=== PATIENT | female | born 1980 | race Caucasian/White ===

== ENCOUNTER 2020-09-04 06:54 | Emergency (ER) | payer MEDICAID, SELFPAY ==
--- NOTE | 2020-09-04 | XR_ITS ---
EXAMINATION: XR SHOULDER, RIGHT CLINICAL INFORMATION: Pain COMPARISON: None TECHNIQUE: Two views of the right shoulder. FINDINGS: The bones and soft tissues are normal. No fracture. Glenohumeral and acromioclavicular alignment is anatomic with normal joint space. No abnormal soft tissue calcifications. IMPRESSION: Normal right shoulder.
[2020-09-04 07:21] VITALS: BP 131/79; PULSE 64; RESP 16; TEMP 36.6; O2SAT 99; BMI 31.7
--- NOTE | 2020-09-04 07:39 | ED.EXTPRO ---
HPI - Extremity Problem General Chief complaint: Extremity Problem Stated complaint: SHOULDER PAIN Time Seen by Provider: 09/04/20 07:30 Source: patient Mode of arrival: ambulatory History of Present Illness HPI Narrative: 39-year-old female with no sig PMHx c/o worsening right shoulder pain x3 weeks s/p heavy lifting while moving. Reports pain worsened with movement, and radiates down right arm with associated tingling. Denies decreased range of motion, direct trauma/ falls, fever, numbness MD Complaint: extremity pain Onset (ago): week(s) Pain Consistency: constant Location: right and upper extremity Radiation: distal Exacerbating factors: range of motion Related Data Home Medications Medication Instructions Recorded Confirmed No Known Home Meds 09/04/20 09/04/20 Previous Rx's Medication Instructions Recorded acetaminophen [Tylenol Extra 500 mg PO Q6H PRN #20 tab 09/04/20 Strength] cyclobenzaprine 5 mg PO Q8H PRN 5 Days #14 tab 09/04/20 lidocaine [Lidoderm] 1 patch TOPICAL DAILY PRN #30 ea 09/04/20 MDD remove after 12 hours naproxen 500 mg PO BID PRN 10 Days #20 tab 09/04/20 Allergies Allergy/AdvReac Type Severity Reaction Status Date / Time codeine [CODEINE] Allergy Mild RASH Verified 09/04/20 07:20 Review of Systems Review of Systems: Yes all other systems are reviewed and are negative Constitutional: Constitutional: Reports as per HPI and Reports no additional constitutional complaints Cardiovascular: Cardiovascular: Reports as per HPI and Reports no additional cardiovascular complaints Respiratory: Respiratory: Reports as per HPI and Reports no additional respiratory complaints Musculoskeletal: Musculoskeletal: Reports as per HPI, Denies muscle weakness, Reports neck pain (R sided neck), Denies numbness, Reports stiffness and Reports tingling Neurologic: Denies numbness and Reports tingling PMFSH Past Medical History Attestation statement: The following information was validated with the patient. Medical History No known health problems Surgical History H/O abdominoplasty H/O tubal ligation Social History Social History Smoking Status: Never smoker Use of substances other than those prescribed or required for medical reasons: No Advance Directives: No Advance Directives Information Provided: Yes Physical Exam Vital Signs and I&O and Narrative: Vital Signs and I&O: Vital Signs Temp 97.9 F 09/04/20 07:21 Pulse 64 09/04/20 07:21 Resp 16 09/04/20 07:21 BP 131/79 09/04/20 07:21 Pulse Ox 99 09/04/20 07:21 Intake & Output 09/03/20 09/04/20 09/04/20 18:59 06:59 18:59 Weight 76.204 kg Body Mass Index 31.7 Const: General: cooperative and healthy appearing Orientation/consciousness: patient oriented x3 HENMT: Head: Yes normal to inspection Neck: Other: + right-sided neck MSK tenderness. No midline spinous tenderness Neck: Yes normal visual inspection and Yes full ROM Resp: Effort & Inspection: normal respiratory effort Cardio: Peripheral pulses: radial pulses present Neuro: General: patient oriented x3 Extrem: Other: right shoulder tender to palpation over AC joint/deltoid. FROM intact but limited due to pain General: Yes normal to inspection Course Course Course Narrative: -- x-ray unremarkable MDM - Extremity (Nontraumatic) MDM Narrative Medical decision making narrative: 39-year-old female with no sig PMHx c/o worsening right shoulder pain x3 weeks s/p heavy lifting while moving. On exam VSS, NAD/well-appearing. Likely MSK versus rotator cuff tears tendon/ ligamental injury. Low concern for fracture/ dislocation Plan: X-ray Discussed with patient likely need MRI for further workup outpatient Discharge Plan Discharge Clinical Impression: Acute pain of right shoulder Patient Disposition: Home, Self-Care Instructions: Arthralgia (ED) Additional Instructions: the x-ray of her shoulder was unremarkable rest, ice and heat arm Flexeril as a muscle relaxer, take at night as it makes you drowsy, do not drive, drink alcohol, or operate machinery while taking an Naproxen as an anti-inflammatory/pain medication, take with food Tylenol in addition will help with pain Lidoderm patches or numbing patches, apply to painful area If symptoms persist and/or worsen, you fever, weakness, numbness return to the ED You need to follow-up with her primary care doctor, you can also follow-up with orthopedics Prescriptions: New cyclobenzaprine 5 mg tablet 5 mg PO Q8H PRN (Reason: pain (scale score 7-10)) 5 Days Qty: 14 RF: 0 naproxen 500 mg tablet 500 mg PO BID PRN (Reason: pain) 10 Days Qty: 20 RF: 0 acetaminophen [Tylenol Extra Strength] 500 mg tablet 500 mg PO Q6H PRN (Reason: pain or fever) Qty: 20 RF: 0 lidocaine [Lidoderm] 5 % adhesive patch,medicated 1 patch topical DAILY MDD remove after 12 hours PRN (Reason: pain) Qty: 30 RF: 0 No Action No Known Home Meds RF: 0 Referrals: Pradip Matt MD [Physician] - 1 week (as needed) Rocío Nance MD [Primary Care Provider] - 5 days Stand Alone Forms: Work/School Release Print Language: Tamazight
[2020-09-04 09:53] VITALS: BP 121/75; PULSE 52; RESP 16; TEMP 36.4; O2SAT 100
== END 2020-09-04 09:56 | disposition home or self-care (01) ==
PROVIDERS: Emergency Provider Emergency Medicine; PCP Family Medicine
DX: M25.511 Pain in right shoulder (principal)
CPT/HCPCS: 73030; 99283; 99284

== ENCOUNTER → 2020-09-26 12:55 | Outpatient (BNVA) | payer MEDICAID, SELFPAY | PROVIDERS: PCP Internal Medicine; Visit Provider Physician Assistant | DX: M75.81 Other shoulder lesions, right shoulder (principal) | CPT/HCPCS: 20610; 99212; J1040 ==

== ENCOUNTER 2020-10-16 06:41 | Emergency (ER) | payer OTHER, MEDICAID, SELFPAY ==
--- NOTE | 2020-10-16 06:57 | ED.LOWEXIN ---
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 [employer] and an oxygen tank fell on her right little toe, 12 hours ago Onset (ago): hour(s) Injury: Right: toes Type of Injury: other (crush) Place: work Severity: moderate Exacerbating factors: weight bearing and movement Context: direct blow Related Data Home Medications Medication Instructions Recorded Confirmed No Known Home Meds 09/04/20 09/04/20 Previous Rx's Medication Instructions Recorded acetaminophen [Tylenol Extra 500 mg PO Q6H PRN #20 tab 09/04/20 Strength] cyclobenzaprine 5 mg PO Q8H PRN 5 Days #14 tab 09/04/20 lidocaine [Lidoderm] 1 patch TOPICAL DAILY PRN #30 ea 09/04/20 MDD remove after 12 hours naproxen 500 mg PO BID PRN 10 Days #20 tab 09/04/20 naproxen [Naprosyn] 500 mg PO BID #20 tab 10/16/20 Allergies Allergy/AdvReac Type Severity Reaction Status Date / Time codeine [CODEINE] Allergy Mild RASH Verified 09/26/20 13:01 Review of Systems Constitutional: Constitutional: Reports no additional constitutional complaints Eyes: Eyes: Reports no additional eye complaints ENT: Denies dizziness Cardiovascular: Cardiovascular: Reports no additional cardiovascular complaints Respiratory: Respiratory: Reports as per HPI Gastrointestinal: Gastrointestinal: Reports no additional gastrointestinal complaints Genitourinary: Genitourinary: Reports no additional female genitourinary complaints Musculoskeletal: Musculoskeletal: Reports no additional musculoskeletal complaints Integumentary/Breasts: Skin/Breast: Denies rash Neurologic: Reports system reviewed and no additional complaints, except as documented, Denies dizziness and Denies Sensory deficit (Neuro) Psychiatric: Psychiatric: Denies anxiety PMFSH Past Medical History Medical History No known health problems Surgical History H/O abdominoplasty H/O tubal ligation Social History Social History Alcohol intake: current Alcohol intake frequency: holidays/special occasions only Alcohol type: wine Smoking Status: Never smoker Use of substances other than those prescribed or required for medical reasons: No Advance Directives: No Advance Directives Information Provided: Yes service: No 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 Physical Exam Vital Signs: Vital Signs: Last Vital Signs Temp 97.7 F 10/16/20 07:03 Pulse 58 10/16/20 07:03 Resp 18 10/16/20 07:03 BP 120/63 10/16/20 07:03 Pulse Ox 98 10/16/20 07:03 Body Mass Index 31.6 Const: General: healthy appearing Nutritional Appearance: average body habitus Orientation/consciousness: oriented to person and patient oriented x3 Limitations: no limitations HENMT: Head: Yes normal to inspection Ears: external ears normal General nose exam: Normal external nose present Mouth: Normal oral and palatal mucosa present and oropharynx normal Throat: Yes posterior oropharynx normal Eyes: General: appearance normal, both eyes and all related structures Neck: Other: supple Neck: Yes normal visual inspection Chest: Chest palpation & inspection: normal inspection of the chest Resp: Auscultation: clear to auscultation bilaterally Cardio: Jugular venous distension: no JVD Rate: regular rate Rhythm: regular rhythm Heart sounds: S1 normal heart sound present and S2 normal heart sound present GI: Inspection: Yes normal to inspection Palpation (GI): Soft to palpation, nontender and No hepatosplenomegaly present Auscultation: normal bowel sounds : General: Yes no CVA tenderness Back/Spine/Pelvis: Back: no CVA tenderness Skin: General skin exam: no rashes or lesions noted Neuro: General: oriented to person and patient oriented x3 Cranial nerves: Yes CN's II-XII intact bilaterally Motor exam (neuro): 5/5 motor strength present throughout Sensory Exam: No Sensory deficit (Neuro) Extrem: Other: 5th digit with ecchymosis and swelling Psych: Appearance: grossly normal Course Course Course Narrative: patient with distal phalynx transverse fracture Procedures Procedure Narrative Procedure Narrative: Candace tape MDM - Extremity Injury (Lower) MDM Narrative Medical decision making narrative: will candace tape and hard shoe Differential Diagnosis Differential diagnosis: Likely fracture of toe Lab Data Labs: Lab Results 10/16/20 Range/Units 07:29 COVID-19 ([facility]) Negative (Negative) COVID-19 Clin Com See Note Imaging Data toe: Radiologist's impression: distal phalynx transverse fracture Discharge Plan Discharge Clinical Impression: Fracture of toe Patient Disposition: Home, Self-Care Instructions: Toe Fracture (ED) Additional Instructions: Elevation, ice 20 minutes on and off, tylenol and motrin alternating for pain Prescriptions: New naproxen [Naprosyn] 500 mg tablet 500 mg PO BID Qty: 20 RF: 0 No Action No Known Home Meds RF: 0 cyclobenzaprine 5 mg tablet 5 mg PO Q8H PRN (Reason: pain (scale score 7-10)) 5 Days Qty: 14 RF: 0 naproxen 500 mg tablet 500 mg PO BID PRN (Reason: pain) 10 Days Qty: 20 RF: 0 acetaminophen [Tylenol Extra Strength] 500 mg tablet 500 mg PO Q6H PRN (Reason: pain or fever) Qty: 20 RF: 0 lidocaine [Lidoderm] 5 % adhesive patch,medicated 1 patch topical DAILY MDD remove after 12 hours PRN (Reason: pain) Qty: 30 RF: 0 Referrals: Pradip Matt MD [Physician] - 2 days
[2020-10-16 07:03] VITALS: BP 120/63; PULSE 58; RESP 18; TEMP 36.5; O2SAT 98; BMI 31.6
--- NOTE | 2020-10-16 07:03 | XR_ITS ---
EXAMINATION: XR TOES, RIGHT CLINICAL INFORMATION: Crush injury COMPARISON: None TECHNIQUE: 3 views of the right toes were obtained. FINDINGS: There is a nondisplaced fracture of the fifth digit distal phalanx. No intra-articular extension. Joint spaces are maintained. The soft tissues are mildly swollen. XR/XR toe RT min 2V IMPRESSION: Nondisplaced fracture of the fifth digit distal phalanx.
[2020-10-16] MEDS: Ketorolac Tromethamine 60 MG/2 ML VIAL IM (07:19)
--- NOTE | 2020-10-16 07:40 | PC.NURSE ---
pt with crush inj to 5th toe on right foot. noted swelling and bruising, inj happened around 7pm she worked thorough the night and toe became progressively worse.
[2020-10-16 08:00] VITALS: BP 118/68; PULSE 58; RESP 18; TEMP 36.5; O2SAT 98
[2020-10-16 08:00] LABS: COVID-19 Test Negative (Negative); IDNOW Serial# 9DD0AD1C
== END 2020-10-16 08:56 | disposition home or self-care (01) ==
PROVIDERS: Emergency Provider Emergency Medicine; PCP Family Medicine
DX: S92.501A Displaced unspecified fracture of right lesser toe(s), initial encounter for closed fracture (principal); M79.674 Pain in right toe(s); Y29.XXXA Contact with blunt object, undetermined intent, initial encounter; Y93.9 Activity, unspecified; Y92.9 Unspecified place or not applicable; Y99.0 Civilian activity done for income or pay; Z20.828 Contact with and (suspected) exposure to other viral communicable diseases; Z79.899 Other long term (current) drug therapy
CPT/HCPCS: 73660; 87635; 96372; 99203; 99284; J1885

== ENCOUNTER 2020-10-22 14:49 | Outpatient (REF) | payer OTHER, MEDICAID, SELFPAY ==
--- NOTE | 2020-10-22 15:15 | MR_ITS ---
EXAMINATION: MR SHOULDER WITHOUT CONTRAST, RIGHT CLINICAL INFORMATION: Radiculopathy, cervical region. Pain in right arm. Patient reports pain when lifting, sharp, throbbing, and neck pain, symptoms for 2 months. COMPARISON: XR right shoulder 09/04/2020. TECHNIQUE: MRI of the shoulder without contrast was performed on a high-field scanner. FINDINGS: ROTATOR CUFF: There is moderate swelling and patchy signal abnormality of the distal supraspinatus tendon, consistent with moderate tendinosis. There may be some focal areas of fraying of the bursal surface. There is no definite discrete measurable tear. The infraspinatus, teres minor, and subscapularis tendons are intact. There is trace edema/fluid in the subacromial-subdeltoid bursa. No muscle atrophy or fatty infiltration. BICEPS: Normal. CORACOACROMIAL ARCH: The undersurface of the acromion is minimally curved with no subacromial spur. The acromioclavicular joint is normal. LABRUM/CAPSULE: Normal. GLENOHUMERAL JOINT/MARROW: Normal. MR/MR shoulder RT wo con IMPRESSION: 1. Moderate distal supraspinatus tendinosis. No discrete measurable tear. 2. Minor subacromial-subdeltoid bursitis.
== END 2020-10-22 14:50 | disposition home or self-care (01) ==
LOC: HO.MRI 14:49
PROVIDERS: Visit Provider Nurse Practitioner Primary Care
DX: M54.12 Radiculopathy, cervical region (principal); M79.601 Pain in right arm; S92.911A Unspecified fracture of right toe(s), initial encounter for closed fracture
CPT/HCPCS: 73221; 99212

== ENCOUNTER → 2020-10-29 12:41 | Outpatient (BNVA) | payer OTHER, SELFPAY | PROVIDERS: PCP Family Medicine; Visit Provider Physician Assistant | DX: Z13.89 Encounter for screening for other disorder (principal) | CPT/HCPCS: 99213 ==

== ENCOUNTER → 2020-11-19 13:31 | Outpatient (BNVA) | payer OTHER, SELFPAY | PROVIDERS: PCP Family Medicine; Visit Provider Physician Assistant | DX: Z13.89 Encounter for screening for other disorder (principal) | CPT/HCPCS: 99213 ==

== ENCOUNTER → 2020-12-14 08:57 | Outpatient (BNVA) | payer OTHER, SELFPAY | PROVIDERS: PCP Family Medicine; Visit Provider Physician Assistant | DX: S92.919D Unspecified fracture of unspecified toe(s), subsequent encounter for fracture with routine healing (principal) | CPT/HCPCS: 99212 ==

== ENCOUNTER → 2020-12-17 14:02 | Outpatient (BNVA) | payer OTHER, SELFPAY | PROVIDERS: PCP Family Medicine; Visit Provider Physician Assistant Medical | DX: Z13.89 Encounter for screening for other disorder (principal) | CPT/HCPCS: 99213 ==

== ENCOUNTER → 2021-01-01 13:45 | Outpatient (BNVA) | payer OTHER, SELFPAY | PROVIDERS: PCP Family Medicine; Visit Provider Internal Medicine | DX: Z13.89 Encounter for screening for other disorder (principal) | CPT/HCPCS: 99213 ==

== ENCOUNTER → 2021-01-15 13:58 | Outpatient (BNVA) | payer OTHER, SELFPAY | PROVIDERS: PCP Family Medicine; Visit Provider Physician Assistant | DX: Z13.89 Encounter for screening for other disorder (principal) | CPT/HCPCS: 99213 ==

== ENCOUNTER 2021-01-24 22:15 | Outpatient (REF) | payer OTHER, SELFPAY ==
[2021-01-24 22:45] LABS: COVID-19 Test Negative (Negative); IDNOW Serial# 9DD0AD1C
== END 2021-01-24 22:16 | disposition home or self-care (01) ==
LOC: HO.LAB 22:15
PROVIDERS: PCP Internal Medicine; Visit Provider Internal Medicine
DX: Z20.822 Contact with and (suspected) exposure to COVID-19 (principal)
CPT/HCPCS: 36415; 87635

== ENCOUNTER 2021-01-28 10:29 | Outpatient (REF) | payer OTHER, SELFPAY ==
[2021-01-28 10:53] LABS: COVID-19 Test Negative (Negative); IDNOW Serial# 55D5AD1C
== END 2021-01-28 10:30 | disposition home or self-care (01) ==
LOC: HO.EMPCOV 10:29
PROVIDERS: Visit Provider Internal Medicine
DX: Z20.822 Contact with and (suspected) exposure to COVID-19 (principal)
CPT/HCPCS: 36415; 87635; C9803

== ENCOUNTER 2021-03-21 13:39 | Outpatient (REF) | payer OTHER, SELFPAY ==
[2021-03-21 14:24] LABS: COVID-19 Test Negative (Negative); IDNOW Serial# 55D5AD1C
== END 2021-03-21 13:40 | disposition home or self-care (01) ==
LOC: HO.EMPCOV 13:39
PROVIDERS: Visit Provider Internal Medicine
DX: Z20.822 Contact with and (suspected) exposure to COVID-19 (principal)
CPT/HCPCS: 36415; 87635; C9803

== ENCOUNTER 2021-06-28 10:28 | Outpatient (REF) | payer MEDICAID, SELFPAY ==
[2021-06-28 12:39] LABS: COVID-19 Test Negative (Negative); IDNOW Serial# 9DD0AD1C
== END 2021-06-28 12:12 | disposition home or self-care (01) ==
LOC: HO.LAB 12:11
PROVIDERS: PCP Family Medicine; Visit Provider Internal Medicine
DX: Z20.822 Contact with and (suspected) exposure to COVID-19 (principal)
CPT/HCPCS: 36415; 87635

== ENCOUNTER → 2022-01-28 14:32 | Outpatient (BNVA) | payer MEDICAID, SELFPAY | PROVIDERS: PCP Family Medicine; Visit Provider Physician Assistant | DX: M77.11 Lateral epicondylitis, right elbow (principal) | CPT/HCPCS: 20551; 99212; J1020 ==

== ENCOUNTER 2022-01-29 06:03 | Outpatient (REF) | payer MEDICAID, SELFPAY ==
[2022-01-29 06:29] LABS: MANUAL DIFF FLAG NO
[2022-01-29 07:20] LABS: Basophils Percent Auto 0.1 % (0-2); Eosinophils Percent Auto 0.1 % (0-4); Hematocrit 36.8 % (37.0-47.0); Hemoglobin 11.9 g/dl (12.0-16.0); Imm Gran Abs Auto 0.03 X10*3/uL (0.00-0.03); Imm Gran Pct Auto 0.4 % (0.0-0.4); Lymphocytes Percent Auto 14.1 % (20-40); Mean Corpuscular HGB Conc 32.3 g/dl (31.0-35.0); Mean Corpuscular Volume 80.5 fL (80.0-98.0); Mean Platelet Volume 9.7 fL (9.4-12.3); Monocytes Absolute Auto 0.2 X10*3/uL (0.1-1.2); Monocytes Percent Auto 3.4 % (2-11); Neutrophils Absolute Auto 5.5 x10*3/uL (2.0-8.3); Neutrophils Percent Auto 81.9 % (45-73); Platelet Count 345 X10*3/uL (160-400); Red Blood Count 4.57 X10*6/uL (4.20-5.50); Red Cell Distribution Width 13.5 % (11.0-16.0); White Blood Count 6.7 X10*3/uL (4.8-10.8)
[2022-01-29 07:36] LABS: Estimated Average Glucose 105 mg/dL; Hemoglobin A1c % 5.3 %
[2022-01-29 08:06] LABS: Alanine Aminotransferase 18 U/L (0-31); Albumin Level 4.8 g/dL (3.5-5.0); Alkaline Phosphatase 57 U/L (39-117); Anion Gap 14 (12-20); Aspartate Amino Transferase 18 U/L (5-31); Bilirubin Total 0.6 mg/dL (0.0-1.0); Blood Urea Nitrogen 11 mg/dL (9-16); Calcium 9.8 mg/dL (8.4-10.2); Carbon Dioxide 25 mmol/L (22-29); Chloride 102 mmol/L (96-108); Cholesterol 230 mg/dL; Estimated Glomerular Filt Rate > 60; Glucose Random 115 mg/dL (60-115); HDL Cholesterol 47 mg/dL; Iron 77 mcg/dL (30-160); LDL Cholesterol Calculated 167 mg/dl; Potassium 4.4 mmol/L (3.3-5.1); Sodium 137 mmol/L (135-145); Total Protein 8.1 g/dL (6.5-8.0); Triglycerides 80 mg/dL
[2022-01-29 08:13] LABS: TSH reflex Free T4 1.29 uIU/mL (0.32-4.0)
[2022-01-29 08:14] LABS: Percent Iron Saturation 17 % (15-50); Total Iron Binding Capacity 446 mcg/dL (228-428); Unsaturated Iron Binding 369 ug/dL
[2022-01-29 08:15] LABS: Erythrocyte Sedimentation Rate 11 MM/HR (0-20)
[2022-01-29 08:25] LABS: Folate 17.5 ng/mL (> or = 4.0); Vitamin B12 642 pg/mL (200-900)
[2022-01-29 08:39] LABS: Ferritin 20 ng/mL (10-250)
[2022-01-29 13:57] LABS: CT PCR NOT DETECTED (Not Detect.); NG PCR NOT DETECTED (Not Detect.)
[2022-01-31 01:07] LABS: Lyme Abs Screen <0.90 index
[2022-01-31 15:07] LABS: Anti Nuclear Antibody Screen NEGATIVE (NEGATIVE)
[2022-02-02 15:51] LABS: Vitamin D 25-OH, D2 <4 ng/mL; Vitamin D 25-OH, D3 20 ng/mL; Vitamin D 25-OH, Total 20 ng/mL (30-100)
[2022-02-04 16:02] LABS: Vitamin B1 10 nmol/L (8-30)
[2022-02-06 11:16] LABS: T.Pallidum Particle Agg Test Non-Reactive (Nonreactive)
[2022-02-12 10:04] LABS: RPR Quantitative Non-Reactive (Nonreactive)
== END 2022-01-29 06:04 | disposition home or self-care (01) ==
LOC: HO.LAB 06:03
PROVIDERS: PCP Family Medicine; Visit Provider Family Medicine
DX: F33.1 Major depressive disorder, recurrent, moderate (principal); H53.8 Other visual disturbances; M54.12 Radiculopathy, cervical region; R20.0 Anesthesia of skin; R94.6 Abnormal results of thyroid function studies
CPT/HCPCS: 80053; 80061; 82306; 82607; 82728; 82746; 83036; 83540; 83735; 84425; 84443; 85025; 85652; 86038; 86039; 86592; 86617; 86618; 86780; 87491; 87591

== ENCOUNTER 2023-10-21 09:52 | Outpatient (REF) | payer MEDICAID, SELFPAY ==
[2023-10-21 12:05] LABS: MANUAL DIFF FLAG NO
[2023-10-21 12:08] LABS: Basophils Percent Auto 0.4 % (0-2); Eosinophils Absolute Auto 0.1 X10*3/uL (0.0-0.4); Eosinophils Percent Auto 1.6 % (0-4); Hematocrit 39.7 % (37.0-47.0); Hemoglobin 12.9 g/dl (12.0-16.0); Imm Gran Abs Auto 0.01 X10*3/uL (0.00-0.03); Imm Gran Pct Auto 0.2 % (0.0-0.4); Lymphocytes Absolute Auto 1.3 X10*3/uL (1.2-4.9); Lymphocytes Percent Auto 25.4 % (20-40); Mean Corpuscular HGB Conc 32.5 g/dl (31.0-35.0); Mean Corpuscular Hemoglobin 26.7 pg (27.0-33.0); Mean Corpuscular Volume 82.2 fL (80.0-98.0); Mean Platelet Volume 9.6 fL (9.4-12.3); Monocytes Absolute Auto 0.3 X10*3/uL (0.1-1.2); Monocytes Percent Auto 6.7 % (2-11); Neutrophils Absolute Auto 3.3 x10*3/uL (2.0-8.3); Neutrophils Percent Auto 65.7 % (45-73); Platelet Count 321 X10*3/uL (160-400); Red Blood Count 4.83 X10*6/uL (4.20-5.50); Red Cell Distribution Width 14.3 % (11.0-16.0); White Blood Count 5.1 X10*3/uL (4.8-10.8)
[2023-10-21 12:50] LABS: Alanine Aminotransferase 15 U/L (0-31); Albumin Level 4.4 g/dL (3.5-5.0); Alkaline Phosphatase 47 U/L (39-117); Anion Gap 10 (12-20); Aspartate Amino Transferase 17 U/L (5-31); Bilirubin Direct 0.1 mg/dL (0.0-0.5); Bilirubin Total 0.4 mg/dL (0.0-1.0); Blood Urea Nitrogen 14 mg/dL (9-16); Calcium 9.2 mg/dL (8.4-10.2); Carbon Dioxide 27 mmol/L (22-29); Chloride 105 mmol/L (96-108); Cholesterol 194 mg/dL (<200); Estimated Glomerular Filt Rate > 60; Glucose Random 99 mg/dL (60-115); HDL Cholesterol 44 mg/dL (>40); LDL Cholesterol Calculated 121 mg/dL (<100); Potassium 4.1 mmol/L (3.3-5.1); Sodium 138 mmol/L (135-145); TSH reflex Free T4 1.49 uIU/mL (0.32-4.0); Total Protein 7.6 g/dL (6.5-8.0); Triglycerides 149 mg/dL (<150)
[2023-10-21 12:52] LABS: HIV AB/AG Nonreactive (Nonreactive); HIV Num 1 0.05 S/CO (0.00-0.99); ~HepC Num1 0.14 S/CO (0.00-0.79); ~Hepatitis C Antibody Nonreactive (Nonreactive)
[2023-10-23 12:49] LABS: RPR Rapid Plasma Reagin NON-REACTIVE (NON-REACTIVE)
[2023-10-25 00:54] LABS: VITAMIN D (1,25 OH) D3 27 pg/mL; Vit D (1,25-Dihydroxy) Total 27 pg/mL (18-72); Vitamin D (1,25 OH) D2 <8 pg/mL
== END 2023-10-21 09:53 | disposition home or self-care (01) ==
LOC: HO.HHCL 09:52
PROVIDERS: Visit Provider Family Medicine
DX: Z11.4 Encounter for screening for human immunodeficiency virus [HIV] (principal); Z11.3 Encounter for screening for infections with a predominantly sexual mode of transmission; F10.90 Alcohol use, unspecified, uncomplicated; E03.9 Hypothyroidism, unspecified
CPT/HCPCS: 36415; 80048; 80061; 80076; 82652; 83735; 84443; 85025; 86592; 86803; 87389

== ENCOUNTER 2024-12-09 12:38 | Outpatient (REF) | payer MEDICAID, SELFPAY ==
[2024-12-09 16:05] LABS: MANUAL DIFF FLAG NO
[2024-12-09 16:13] LABS: Basophils Percent Auto 0.4 % (0-2); Eosinophils Absolute Auto 0.1 X10*3/uL (0.0-0.4); Eosinophils Percent Auto 1.9 % (0-4); Hematocrit 38.9 % (37.0-47.0); Hemoglobin 12.5 g/dl (12.0-16.0); Imm Gran Abs Auto 0.02 X10*3/uL (0.00-0.03); Imm Gran Pct Auto 0.4 % (0.0-0.4); Lymphocytes Absolute Auto 1.3 X10*3/uL (1.2-4.9); Lymphocytes Percent Auto 25.3 % (20-40); Mean Corpuscular HGB Conc 32.1 g/dl (31.0-35.0); Mean Corpuscular Volume 80.9 fL (80.0-98.0); Monocytes Absolute Auto 0.4 X10*3/uL (0.1-1.2); Monocytes Percent Auto 7.4 % (2-11); Neutrophils Absolute Auto 3.3 x10*3/uL (2.0-8.3); Neutrophils Percent Auto 64.6 % (45-73); Platelet Count 289 X10*3/uL (160-400); Red Blood Count 4.81 X10*6/uL (4.20-5.50); White Blood Count 5.2 X10*3/uL (4.8-10.8)
[2024-12-09 16:36] LABS: Alanine Aminotransferase 20 U/L (0-31); Albumin Level 4.7 g/dL (3.5-5.0); Alkaline Phosphatase 52 U/L (39-117); Anion Gap 9 (12-20); Aspartate Amino Transferase 27 U/L (5-31); Bilirubin Direct 0.1 mg/dL (0.0-0.5); Bilirubin Total 0.3 mg/dL (0.0-1.0); Blood Urea Nitrogen 8 mg/dL (9-16); Calcium 9.3 mg/dL (8.4-10.2); Carbon Dioxide 28 mmol/L (22-29); Chloride 107 mmol/L (96-108); Cholesterol 180 mg/dL (<200); Estimated Glomerular Filt Rate > 60; Glucose Random 94 mg/dL (60-115); HDL Cholesterol 55 mg/dL (>40); LDL Cholesterol Calculated 106 mg/dL (<100); Potassium 4.2 mmol/L (3.3-5.1); Sodium 140 mmol/L (135-145); Total Protein 8.1 g/dL (6.5-8.0); Triglycerides 95 mg/dL (<150)
[2024-12-09 16:52] LABS: TSH reflex Free T4 2.04 uIU/mL (0.32-4.0); Vitamin D 25-OH Total 46.8 ng/mL (>30)
[2024-12-10 08:34] LABS: HIV AB/AG Nonreactive (Nonreactive); HIV Num 1 0.07 S/CO (0.00-0.99); ~Hepatitis C Antibody Nonreactive (Nonreactive)
[2024-12-10 08:35] LABS: Syphilis Screen Nonreactive (Nonreactive)
== END 2024-12-09 12:39 | disposition home or self-care (01) ==
LOC: HO.HHCL 12:38
PROVIDERS: Visit Provider Family Medicine
DX: E66.811 Obesity, class 1 (principal); E66.09 Other obesity due to excess calories; Z68.31 Body mass index [BMI] 31.0-31.9, adult; F33.1 Major depressive disorder, recurrent, moderate; E55.9 Vitamin D deficiency, unspecified
CPT/HCPCS: 36415; 80048; 80061; 80076; 82306; 84443; 85025; 86780; 86803; 87389

== ENCOUNTER 2024-12-09 13:11 | Outpatient (REF) | payer MEDICAID, SELFPAY ==
[2024-12-10 03:54] LABS: CT PCR NOT DETECTED (Not Detect.); NG PCR NOT DETECTED (Not Detect.)
== END 2024-12-09 13:12 | disposition home or self-care (01) ==
LOC: HO.HHCL 13:11
PROVIDERS: Visit Provider Family Medicine
DX: Z11.3 Encounter for screening for infections with a predominantly sexual mode of transmission (principal)
CPT/HCPCS: 81515; 87491; 87591

== ENCOUNTER 2024-12-09 16:15 | Outpatient (REF) | payer MEDICAID, SELFPAY ==
[2024-12-09 18:21] LABS: Bacterial Vaginosis PCR POSITIVE (Negative); Candida Group PCR NOT DETECTED (Not Detect); Candida glab krusei PCR NOT DETECTED (Not Detect); Trichomonas vaginalis PCR NOT DETECTED (Not Detect)
== END 2024-12-09 16:16 | disposition home or self-care (01) ==
LOC: HO.LNP 16:15
PROVIDERS: Visit Provider Family Medicine
DX: Z13.89 Encounter for screening for other disorder (principal)
CPT/HCPCS: 81515

== ENCOUNTER 2025-01-11 09:23 | Outpatient (REF) | payer MEDICAID, SELFPAY ==
--- OUTSIDE RECORDS SUMMARY | 2025-01-11 10:35 | XMS_ITS | Encounter Summary ---
Author Organization [employer] Address [address] [place] [address] Care Team Providers Care Mechanical Equipment Sales Engineer Name Role Phone Rocío Nance MD Primary Care Provider [phone]- [phone] Encounter Details Date Type Department Care Team (Latest Contact Info) Description 01/04/2025 Travel Social History Tobacco Use Types Packs/Day Years Used Date Smoking Tobacco: Former Cigarettes Smokeless Tobacco: Former Alcohol Use Standard Drinks/Week Comments Yes 12 (1 standard drink = 0.6 oz pure alcohol) drinks occacionally due to stress Alcohol Answer Date Recorded How often do you have a drink containing alcohol ? 2 12/09/2024 Average Number of Drinks Not on file 025 Frequency of Binge Drinking Not on file 11/30 Depression Answer Date Recorded Patient Health Questionnaire-9 Score 21 12/09/2024 Patient Health Questionnaire-9 Score 21 12/09/2024 Last PHQ-9: Questionnaire Data Not on file 0 12/09/2024 Housing Stability Answer Date Recorded What is your housing situation today? I have [facility] 12/09/[address] you li ve. Do you have problems with any of the following? None of the above 12/09/2024 Food Insecurity Answer Date Recorded Within the past 12 months, y ou worried that your food would run out before you got money to buy more: Never True 12/09/2024 Within the past 12 months,th e food you bought just didn't last and you didn't have enough money to get more: Never True 08/2025 Transportation Answer Date Recorded In the past 12 months, has l ack of transportation kept you from medical appts, meetings, work or from getting things needed for daily living? No 12/09/2024 Utilities Answer Date Recorded In the past 12 months, has t he electric, gas, oil or water company threatened to shut off services in your home? No 12/09/2024 Depression Answer Date Recorded Patient Health Questionnaire-2 Score 5 12/09/2024 Internet Access Answer Date Recorded Internet Access Q1 Yes 12/09/2024 Internet Access Q2 Not on file 12/09/2024 Comments Unknown Sex and Gender Information Value Date Recorded Sex Assigned at Female 09/29/2022 10:17 AM EDT Legal Sex Female 10:17 AM EDT Gender Identity Female 09/29/2022 10:17 AM EDT Sexual Orientation Choose not to disclose 2021 10:17 AM EDT documented as of this encounter Plan of Treatment Not on file documented as of this encounter Visit Diagnoses Not on filedocumented in this encounter Additional Health Concerns Assessment Noted Time PHQ-9 Depression Total Score: 21 025 12:01 PM EST documented as of this encounter Care Teams Mechanical Equipment Sales Engineer Relationship Specialty Start Date End Date Rocío Nance MD [address] [place] [id number] PCP - General Family Medicine 11/30/18 Luna Reina CNM Gynecology 12/09/24 documented as of this encounter
--- OUTSIDE RECORDS SUMMARY | 2025-01-11 10:36 | XMS_ITS | Clinical Summary ---
Author Organization [facility] Address [address] [place] [address] Care Team Providers Care Assistant Property Manager Name Role Rocío Ayers MD Primary Care Provider [phone]- [phone] Surgical History Surgery Date Site/Laterality Comments BREAST REDUCTION 2014 PROCEDURE: MO BREAST REDUCTION OTHER SURGICAL HISTORY PROCEDURE: MO LIG/TRNSXJ FLP TUBE ABDL/VAG APPR UNI/BI BELT ABDOMINOPLASTY 2018 PROCEDURE: HISTORICAL TUMMY TUCK; COMMENT: in [facility] Medical History Medical History Date Comments Anemia DX:Anemia Anxiety state DX:Anxiety state Family History Medical History Relation Name Comments Breast cancer Aunt mom side Hypertension Father Other cancer Maternal Grandmother Hypertension Mother Breast cancer Paternal Grandmother No Known Problems Sister 1/2 sisiter on dad side Diabetes Uncle Cervical cancer Neg Hx Colon cancer Neg Hx Ovarian cancer Neg Hx Prostate cancer Neg Hx Relation Name Status Comments Aunt mom side Alive Brother 1 bipolar Alive Brother 2 depreesssponm Alive Brother 3 depression Alive Brother 4 Alive Father Alive Maternal Grandmother Mother Alive Paternal Grandmother Sister 1/2 sisiter on dad side Alive Uncle Social History Tobacco Use Types Packs/Day Years Used Date Smoking Tobacco: Light Smoker Cigarettes Smokeless Tobacco: Never Alcohol Use Standard Drinks/Week Comments Yes 0 (1 standard drink = 0.6 oz pur e alcohol) Comments Unknown Sex and Gender Information Value Date Recorded Sex Assigned at Not on file Legal Sex Female 9:06 AM EST Gender Identity Not on file Sexual Orientation Not on file Obstetrics History Last Filed Vital Signs Vital Sign Reading Time Taken Comments Blood Pressure 108/71 10/27/2023 10:13 AM EST Pulse 66 10/27/2023 10:13 AM EST Temperature - - Respiratory Rate - - Oxygen Saturation - - Inhaled Oxygen Concentration - - Weight 81.2 kg (179 lb) 10/27/2023 10:13 AM EST Height 154.9 cm (5' 1 ) 10/27/2023 10:13 AM EST Body Mass Index 33.82 10/27/2023 10:13 AM EST Plan of Treatment Health Maintenance Due Date Last Done Comments Breast Cancer Screening 1980 DTaP,Tdap,and Td Vaccines (1 - Tdap) 1999 Hepatitis B Vaccines (1 of 3 - 19+ 3-dose series) 1999 Pneumococcal Vaccine: Pediat rics (0 to 5 Years) and At-Risk Patients (6 to 64 Years) (1 of 2 - PCV) 1999 Depression Screening 11/02/2022 HIV Screening 11/02/2022 Hepatitis C Screening 11/02/2022 Social Influencers of Health Screening 11/02/2022 Cervical Cancer Screening: P ap Smear 02/15/2024 02/14/2021 COVID-19 Vaccine ( - 2023-2 5 season) 2024 Influenza Vaccine (#1) 2024 HIB Vaccines Aged Out No longer eligi ble based on patient's age to complete this topic HPV Vaccines Aged Out No longer eligi ble based on patient's age to complete this topic Hepatitis A Vaccines Aged Out No long er eligible based on patient's age to complete this topic IPV Vaccines Aged Out No longer eligi ble based on patient's age to complete this topic MMR Vaccines Aged Out No longer eligi ble based on patient's age to complete this topic Meningococcal ACWY Vaccine Aged Out N o longer eligible based on patient's age to complete this topic Meningococcal B Vacine Aged Out No lo nger eligible based on patient's age to complete this topic RSV Immunization Patients Un verito 20 months Aged Out No longer eligible b ased on patient's age to complete this topic Varicella Vaccines Aged Out No longer eligible based on patient's age to complete this topic Procedures Procedure Name Priority Date/Time Associated Diagnosis Comments PAP SMEAR Routine 02/14/2021 from Last 3 Months or Most Recently Relevant to Health Maintenance Results * Pap smear (02/14/2021) 02/14/2021 Narrative HISTORICAL TESTING LAB RESULTING AGENCY - 02/18/2021 1:05 PM EDT [id number] THINPREP PAP, IMAGED: NEGATIVE FOR SQUAMOUS INTRAEPITHELIAL LESION AND MALIGNANCY . CLUE CELLS ARE PRESENT. FARA HIGGINBOTHAM(ASCP) (CASE ELECTRONICALLY SIGNED 02 18 2021) RESULT OF APTIMA HIGH RISK HPV ASSAY: HIGH RISK HPV: ??NEGATIVE (SEROTYPES 16,18,31,33,35,39,45,51,52,56,58,59,66,68) COMPLETED ON 2021-02-18 ADEQUACY: SATISFACTORY ENDOCERVICAL/TRANSFORMATION ZONE COMPONENT PRESENT. SOURCE: THINPREP PAP HPV ANY DX: ??REFLEX 16 AND 18, CERVICAL, IMAGED CLINICAL INFORMATION: HPV ANY DIAGNOSIS. HORMONES, PAP HX NEG 2015, LMP 02/04/21 [Z12.4, Z01.419 Yesenia Ramsay [facility] LAB CYTOLOGY ORDERABLES Final Result HISTORICAL TESTING LAB RESULTING AGENCY from Last 3 Months or Most Recently Relevant to Health Maintenance Care Teams Assistant Property Manager Relationship Specialty Start Date End Date Rocío Nance MD [address] [place] [phone] PCP - General Internal Medicine 02/11/18
--- OUTSIDE RECORDS SUMMARY | 2025-01-11 10:36 | XMS_ITS | Encounter Summary ---
Author Organization [employer] Address [address] [place] [address] Care Team Providers Care Nurse College Name Role Phone Rocío Nance MD Primary Care Provider +1- [phone] Encounter Details Date Type Department Care Team (Late st Contact Info) Description 09/06/2024 Abstract [facility] [address] [place], [place] [phone] Rocío Nance MD [address], [place] [phone] Social History Tobacco Use Types Packs/Day Years Used Date Smoking Tobacco: Some Days Cigarettes Alcohol Use Standard Drinks/Week Comments Yes 12 (1 standard drink = 0.6 oz pure alcohol) drinks occacionally due to stress Depression Answer Date Recorded Patient Health Questionnaire-9 Score 0 09/23/2023 Patient Health Questionnaire-9 Score 0 09/23/2023 Last PHQ-9: Questionnaire Data Not on file 1 Housing Stability Answer Date Recorded What is your housing situation today? I have housing today, but I am worried about losing housing in the future 09/23/[address] you li ve. Do you have problems with any of the following? None of the above 09/23/2023 Food Insecurity Answer Date Recorded Within the past 12 months, y ou worried that your food would run out before you got money to buy more: Never True 09/23/2023 Within the past 12 months,th e food you bought just didn't last and you didn't have enough money to get more: Never True Transportation Answer Date Recorded In the past 12 months, has l ack of transportation kept you from medical appts, meetings, work or from getting things needed for daily living? No 09/23/2023 Utilities Answer Date Recorded In the past 12 months, has t he electric, gas, oil or water company threatened to shut off services in your home? No 09/23/2023 Depression Answer Date Recorded Patient Health Questionnaire-2 Score 0 09/23/2023 Comments Unknown Sex and Gender Information Value Date Recorded Sex Assigned at Female 09/29/2022 10:17 AM EDT Legal Sex Female 10:17 AM EDT Gender Identity Female 09/29/2022 10:17 AM EDT Sexual Orientation Choose not to disclose 2021 10:17 AM EDT documented as of this encounter Plan of Treatment Not on file documented as of this encounter Procedures Procedure Name Priority Date/Time Associated Diagnosis Comments PAP/HPV Routine 02/18/2021 documented in this encounter Results * PAP/HPV (02/18/2021) Pap Smear 1. NILM 1. NILM Comment:With Yesenia Ramsay CNM Historical Provider HEALTH MAINTENANCE Final Result documented in this encounter Visit Diagnoses Not on filedocumented in this encounter Additional Health Concerns Assessment Noted Time PHQ-9 Depression Total Score: 0 09/23/20 23 10:57 AM EDT documented as of this encounter Care Teams Nurse College Relationship Specialty Start Date End Date Rocío Nance MD [address] [place] [address] PCP - General Family Medicine 11/30/18 Luna Reina CNM Gynecology 12/09/24 documented as of this encounter
--- OUTSIDE RECORDS SUMMARY | 2025-01-11 10:36 | XMS_ITS | Encounter Summary ---
Author Organization [employer] Address [address] [facility] [address] [place] [address] Care Team Providers Care Industrial Services Worker Name Role Phone Rocío Nance MD Primary Care Provider [phone]- [phone] Reason for Visit * Reason Onset Date Comments Breast Cancer Screening 12/15/2024 Encounter Details Date Type Department Care Team ([facility] st Contact Info) Description 12/15/2024 Telephone [facility] [address] [place], [place] [id number] Teod[place], [place] Breast Cancer Screening Social History Tobacco Use Types Packs/Day Years [...] AM EDT documented as of this encounter Miscellaneous Notes * Telephone Encounter - Yvonne Valerio [place] - 12/15/2024 1:44 PM EST Patient contacted 12/15/24 1:45 PM to remind them that mammogram for breast cancer screening is due. Advised to call centralized scheduling at [facility]: [phone] documented in this encounter Plan of Treatment Not on file documented as of this encounter Visit Diagnoses Not on filedocumented in this encounter Additional Health Concerns Assessment Noted Time PHQ-9 Depression Total Score: 21 025 12:01 PM EST documented as of this encounter Care Teams Industrial Services Worker Relationship Specialty Start Date End Date Rocío Nance MD [address] [place] [address] PCP - General Family Medicine 11/30/18 Luna Reina CNM Gynecology 12/09/24 documented as of this encounter
--- OUTSIDE RECORDS SUMMARY | 2025-01-11 10:36 | XMS_ITS | Encounter Summary ---
Author Organization [facility] [employer] [facility] Address [address] [place] [address] [address] [place] [address] Care Team Providers Care Oil Fire Specialist Name Role Phone Rocío Nance MD Primary Care Provider +1- [phone] Encounter Details Date Type Department Care Team (Late st Contact Info) Description 01/06/2023 Abstract [facility] [address], [place] [phone] Rocío Nance MD [address] [place], [place] [phone] Social History Tobacco Use Types Packs/Day Years Used Date Smoking Tobacco: Never Assessed Comments Unknown Sex and Gender Information Value [...] Date/Time Associated Diagnosis Comments PAP SMEAR Routine 03/12/2018 12:00 AM EDT documented in this encounter Results * Pap Smear (03/12/2018 12:00 AM EDT) Swab us Historical Provider LAB CYTOLOGY ORDERABLES F inal Result IMAGING documented in this encounter Visit Diagnoses Not on filedocumented in this encounter Care Teams Oil Fire Specialist Relationship Specialty Start Date End Date Rocío Nance MD [address] [place], [place] [phone] PCP - General Family Medicine 11/30/18 Luna Reina CNM Gynecology 12/09/24 documented as of this encounter
--- OUTSIDE RECORDS SUMMARY | 2025-01-11 10:36 | XMS_ITS | Clinical Summary ---
Author Organization [employer] Address [address] [place] [address] [address] [place] [address] Care Team Providers [facility] [place] [facility] Name Role Phone Rocío Nance MD Primary Care Provider [phone] Allergies Active Allergy Reactions Criticality Noted Date Comments Codeine Other reaction(s): rash Medications * This document contains information received from the source organization and may not represent a complete record from that organization. cholecalciferol (Vitamin D-3) 25 MCG (1000 UT) tabletIndication s:Vitamin D Deficiency Take 1 tablet (25 mcg) by mouth Once per day. 90 tablet 3 5 12/09/19 26 Active DULoxetine (Cymbalta) [address] capsuleIndicatio ns:Recurrent major depressive episodes, moderate (CMS/HCC) Take 1 capsule (20 mg) by mouth Once per day. 90 capsule 2 5 Active hydrOXYzine pamoate (Vistaril) 25 MG capsuleIndicatio ns:Anxiety Take 1 capsule (25 mg) by mouth if needed each day for itching (panic attack) for up to 20 days. 10 capsule 1 5 Active meloxicam (Mobic) 15 MG tabletIndication s:Midline low back pain, unspecified chronicity, unspecified whether sciatica present Take 1 tablet (15 mg) by mouth Once per day. 20 tablet 1 5 Active metroNIDAZOLE (Metrogel) 0.75 % vaginal gelIndications:B acterial Vaginosis Insert one applicator into vagina at bedtime for 7 nights 45 g 5 Active Active Problems Problem Noted Date Diagnosed Date Vitamin D deficiency 12/09/2024 Overview (12/09/2024): No results found for: [id number] Continue cholecalciferol (Vitamin D-3) 25 MCG (1000 UT) tablet Assessment & Plan (12/09/2024 11:34 AM EST): Continue cholecalciferol (Vitamin D-3) 25 MCG (1000 UT) tablet Anxiety 12/09/2024 Overview (12/09/2024): Currently not-controlled, not on any medication therapy. Interested in seeing a therapist. Denies suicidial or homacidial ideation. Discussed some medication options and pt agrees. -Start DULoxetine (Cymbalta) [address] capsule 12/09/24 -Start hydrOXYzine pamoate (Vistaril) 25 MG capsule 12/09/24 -referred to behavioral health 12/09/24 Assessment & Plan (12/09/2024 11:48 AM EST): Currently not-controlled, not on any medication therapy. Interested in seeing a therapist. Denies suicidial or homacidial ideation. Discussed some medication options and pt agrees. -Start DULoxetine (Cymbalta) [address] capsule 12/09/24 -Start hydrOXYzine pamoate (Vistaril) 25 MG capsule 12/09/24 -referred to behavioral health 12/09/24 Breast cancer screening by mammogram 12/09/2024 Overview (12/09/2024): Due for mammogram. -ordered mammogram 12/09/24 Assessment & Plan (12/09/2024 11:38 AM EST): Due for mammogram. -ordered mammogram 12/09/24 Foul smelling vaginal discharge 12/09/2024 Overview (12/09/2024): -ordered SureSwab?? Advanced Bacterial Vaginosis (BV), TMA 12/09/24 Assessment & Plan (12/09/2024 11:49 AM EST): -ordered SureSwab?? Advanced Bacterial Vaginosis (BV), TMA 12/09/24 Class 1 obesity due to exces s calories without serious comorbidity with body mass index (BMI) of 31.0 to 31.9 in adult 12/09/2024 Overview (12/09/2024): -ordered routine labs 12/09/24 Assessment & Plan (12/09/2024 11:50 AM EST): -ordered routine labs 12/09/24 Cardiac risk counseling 11/03/2024 Overview (12/09/2024): Calculated 12/09/24: low risk The 10-year ASCVD risk score (Vi SIEGEL, et al., 2019) is: 4.3% Values used to calculate the score: Age: 44 years Sex: Female Is Non- : No Diabetic: No Tobacco smoker: Yes Systolic Blood Pressure: 139 mmHg Is BP treated: No HDL Cholesterol: 44 mg/dL Total Cholesterol: 194 mg/dL Lab Results Component Value Date LDLCHOLCAL 121 (H) 10/21/2023 -Atherosclerotic Cardiovascular Disease (ASCVD) Risk Calculator is intended for a person age 40-79 without ASCVD and with LDL-cholesterol < 190/mg/dl to assesses the chances of developing heart disease over the next 10 years. -Tobacco cessation: not applicable -Statin therapy:N/A -Importance of moderate physical activity and nutrition interventions discussed. Other specified health status 10/10/2023 Overview (12/09/2024): -next comprehensive annual evaluation due after 12/09/25 -eye care facilitated by [facility] [place] -dental home is [facility]. -johnathan care proxy given and filed 12/09/24 Assessment & Plan (12/09/2024 11:33 AM EST): -next comprehensive annual evaluation due after 12/09/25 -eye care facilitated by [facility] [place] -dental home is [facility]. -johnathan care proxy given and filed 12/09/24 PTSD (post-traumatic stress disorder) 10/10/2023 Overview (12/09/2024): -Her daughter was murdered (February 2017) and the patient developed PTSD and depression as well as an alcohol dependency. -has not been drinking regularly the past 3 months. -interested in therapy, referred to behavior health 12/09/24 Assessment & Plan (12/09/2024 11:41 AM EST): -Her daughter was murdered (February 2017) and the patient developed PTSD and depression as well as an alcohol dependency. -has not been drinking regularly the past 3 months. -interested in therapy, referred to behavior health 12/09/24 History of cosmetic plastic surgery 10/10/2023 Overview (10/10/2023): -Hx gluteoplasty, abdomino plasty 03/15/[address] [place] [address] Madan Abraham at [facility] -Hx breast reduction 2014 Right knee pain 09/23/2023 Overview (12/09/2024): - continue meloxicam (Mobic) 15 MG table, PRN for pain. Assessment & Plan (12/09/2024 11:49 AM EST): - continue meloxicam (Mobic) 15 MG table, PRN for pain. Assessment & Plan (09/23/2023 11:29 AM EDT): -Xray ordered -PT recommended Recurrent major depressive episodes, moderate 09/23/2023 Overview (12/09/2024): Currently not-controlled, not on any medication therapy. Interested in seeing a therapist. Denies suicidial or homacidial ideation. Discussed some medication options and pt agrees. -Start DULoxetine (Cymbalta) [address] capsule 12/09/24 -Start hydrOXYzine pamoate (Vistaril) 25 MG capsule 12/09/24 -referred to behavioral health 12/09/24 Assessment & Plan (12/09/2024 1:58 PM EST): During IBH Consult Trevor presenting with depressed mood, Tearful, crying spells , hopelessness, irritable mood, loss of interests/pleasure , sense of isolation/loneliness , isolating, change in appetite or weight reduce appetite, changes in sleep difficulty falling asleep, psychomotor retardation, fatigue/loss of energy, worthlessness, inappropriate/excessive guilt , difficulty concentrating, indecisiveness; for a period of 18+ mo, for most or all symptoms in the context of family issues, marriage, and relationship issues. Trevor has a hx of anxiety, depression and PTSD per her medical chart. Pt presented today with depressive symptoms associated with relationship issues. Trevor's daughter in 2017. Pt developed trauma after unexpectedly losing her daughter Mary . Trevor has difficulty sharing her emotions. She feels hopeless and prefers to isolate herself from others. Severity of sxs are causing difficulties in important areas of her life. Patient feels motivated to change as she wants to enjoy life again. clinician engaged patient with active/reflective listening. Provided a space for patient to process her emotions. Explored mechanisms that she can incorporate into her daily routine. Provided contact information for [facility]/crisis line and [facility]. Trevor will start medication to treat sxs (see PCP note). clinician will provide additional support during medical appointment. Pt agreed to complete intake with [facility] for OP individual therapy. Assessment & Plan (12/09/2024 11:48 AM EST): Currently not-controlled, not on any medication therapy. Interested in seeing a therapist. Denies suicidial or homacidial ideation. Discussed some medication options and pt agrees. -Start DULoxetine (Cymbalta) [address] capsule 12/09/24 -Start hydrOXYzine pamoate (Vistaril) 25 MG capsule 12/09/24 -referred to behavioral health 12/09/24 Backache 12/30/2012 09/23/2023 Overview (12/09/2024): - continue meloxicam (Mobic) 15 MG table, PRN for pain. Assessment & Plan (12/09/2024 11:43 AM EST): - continue meloxicam (Mobic) 15 MG table, PRN for pain. Hypothyroidism 12/30/2012 09/23/2023 Tobacco dependence syndrome 12/30/201208/31 Overview (12/09/2024): Hx of tobacco dependence since 11 y.o. Currently quit smoking 12/09/24 Assessment & Plan (12/09/2024 11:33 AM EST): Hx of tobacco dependence since 11 y.o. Currently quit smoking 12/09/24 Encounters * This document contains information received from the source organization and may not represent a complete record from that organization. Date Type Department Care Team Description 01/11/2025 9:00 AM EST Immunization [address] [address] Batsheva Sneed LPN Encounter for immunization (Primary Dx) 01/11/[address] [address] Renee Geronimo, compounding and finishing supervisor Orders 01/09/[address] [address] Tanja Vazquez MA chartprep 01/04/2025 Travel 12/15/2024 Telephone [facility] [address] [place] [address] Yvonne Valerio MA Breast Cancer Screening 12/12/[address] [address] Eveline El, ELICEO Results 12/09/2024 11:15 AM EST Office Visit [address] [address] Rocío Nance MD Midline low back pain, unspecified chronicity, unspecified whether sciatica present (Primary Dx); Recurrent major depressive episodes, moderate (CMS/HCC); Chronic pain of right knee; Foul smelling vaginal discharge; Anxiety; PTSD (post-traumatic stress disorder); Tobacco dependence syndrome; Vitamin D deficiency; Breast cancer screening by mammogram; Routine screening for STI (sexually transmitted infection); Class 1 obesity due to excess calories without serious comorbidity with body mass index (BMI) of 31.0 to 31.9 in adult; Dietary counseling; Exercise counseling; Encounter for immunization; Other specified health status; BV (bacterial vaginosis) 12/09/2024 Travel 12/08/2024 Telephone [facility] [address] [place] [phone] Rocío Nance MD insurance 12/01/2024 Patient Outreach [address] [address] Rocío Nance MD Pre-visit Planning (Pre-visit planning - LVM ) 11/04/2024 Travel 11/03/[address] [address] Yvonne Valerio MA Appointment Confirmation 11/03/2024 Travel 11/02/[address] [address] Yvonne Valerio MA Breast Cancer Screening from Last 3 Months Immunizations Name Administration Dates Next Due Hep A, Adult 12/09/2024 Hep A, ped/adol, 2 dose 04/10/2008 Hep B, Adolescent or Pediatric 04/10/2008 Hep B, adult 11/18/2023,09/23/2023,12/29/2019 Influenza injectable quadriv alent preservative free 12/29/2019,11/12/2016,01/22/2015 Pfizer Covid-19 Vaccine 12+ 01/11/2025,,11/26/2020 Pneumococcal Conjugate PCV 20 12/09/2024 TD (adult), 2 Lf tetanus tox oid, preservative free, adsorbed 04/10/2008 Td (adult), unspecified 04/15/2005 Tdap 01/22/2015 Family History Medical History Relation Name Comments Diabetes Father Hypertension Father Diabetes Mother Relation Name Status Comments Father Mother Social History Tobacco Use Types Packs/Day Years Used Date Smoking Tobacco: Former Cigarettes Smokeless Tobacco: Former Tobacco Cessation:Counseling Given: Not Answered Alcohol Use Standard Drinks/Week Comments Yes 12 [...] is your housing situation today? I have clementina sexton 12/09/[address] you [...] not to disclose 2021 10:17 AM EDT Last Filed Vital Signs Vital Sign Reading Time Taken Comments Blood Pressure 116/66 12/09/2024 11:11 AM EST Pulse 66 12/09/2024 11:11 AM EST Temperature 36.7 ??C (98 ??F) 12/09/2024 11:11 AM EST Respiratory Rate 20 12/09/2024 11:11 AM EST Oxygen Saturation 98% 12/09/2024 11:11 AM EST Inhaled Oxygen Concentration - - Weight 76.2 kg (168 lb) 12/09/2024 11:11 AM EST Height 154.9 cm (5' 1 ) 12/09/2024 11:11 AM EST Body Mass Index 31.74 12/09/2024 11:11 AM EST Plan of Treatment Health Maintenance Due Date Last Done Comments Mammogram 2020 DTaP/Tdap/Td Vaccines (2 - Td or Tdap) 01/22/2025 01/22/2015, 04/10/2008, 04/15/2005 Influenza Vaccine (#1) 2025 , 11/12/2016, 01/22/2015 Postponed from 07/31/2024 (Patient Refused) Depression Monitoring (PHQ-9) 06/08/2025 12/09/2024, 12/09/2024 Hepatitis A Vaccines (2 of 2 - Risk 2-dose series) 06/08/2025 12/09/2024, 04/10/2008 Alcohol/Substance Use Screening 12/09/2025 12/09/2024 Depression Screening 12/09/2025 12/09/2024, 12/09/19 25 Family Planning (PISQ) 12/09/2025 12/09/2024 SDOH Screening 12/09/2025 12/09/2024 Tobacco Screening 12/09/2025 12/09/2024 Cervical Cancer Screening 02/18/2026 HPV/Cotest 02/18/2026 Pap Smear 02/18/2026 02/18/2021, 03/12/2018 Lipid Panel 12/09/2029 12/09/2024, 10/21/2023 Zoster Vaccines (1 of 2) 2030 RSV Patients and Patients Aged 60 years or older (1 - 1-dose 75+ series) 2055 Hepatitis B Vaccines Completed 11/18/2023, 09/23/2023, 12/29/2019, Additional history exists HIV Screening Completed 12/09/2024, 10/01, 02/01/2020 Hepatitis C Screening Completed 12/09/2024, 023 Pneumococcal Vaccine: Pediatrics (0 to 5 Years) and At-Risk Patients (6 to 49) Years) Aged Out 12/09/2024 No longer eligible based on patient's age to complete this topic COVID-19 Vaccine Completed 01/11/2025, , 11/26/2020 HIB Vaccines Aged Out No longer eligi ble based on patient's age to complete this topic HPV Vaccines Aged Out No longer eligi ble based on patient's age to complete this topic IPV Vaccines Aged Out No longer eligi ble based on patient's age to complete this topic Meningococcal Vaccine Aged Out No michael smooth eligible based on patient's age to complete this topic RSV under 20 months Aged Out No longe r eligible based on patient's age to complete this topic Rotavirus Vaccines Aged Out No longer eligible based on patient's age to complete this topic Procedures Procedure Name Priority Date/Time Associated Diagnosis Comments SYPHILIS SCREEN Routine 12/09/2024 12:45 PM EST Class 1 obesity due to excess calories without serious comorbidity with body mass index (BMI) of 31.0 to 31.9 in adult HEPATITIS C AB W/REFL TO HCV RNA, QN, PCR Routine 12/09/2024 12:45 PM EST Class 1 obesity due to excess calories without serious comorbidity with body mass index (BMI) of 31.0 to 31.9 in adult HIV 1/2 ANTIGEN/ANTIBODY, FOURTH GENERATION W/RFL Routine 12/09/2024 12:45 PM EST Class 1 obesity due to excess calories without serious comorbidity with body mass index (BMI) of 31.0 to 31.9 in adult VITAMIN D,25-OH,TOTAL,IA Routine 12/09/2024 12:45 PM EST Recurrent major depressive episodes, moderate (CMS/HCC) Vitamin D deficiency CBC WITH AUTO DIFFERENTIAL Routine 12/09/2024 12:45 PM EST Recurrent major depressive episodes, moderate (CMS/HCC) Class 1 obesity due to excess calories without serious comorbidity with body mass index (BMI) of 31.0 to 31.9 in adult TSH W/REFLEX TO FT4 Routine 12/09/2024 1 2:45 PM EST Recurrent major depressive episodes, moderate (CMS/HCC) Class 1 obesity due to excess calories without serious comorbidity with body mass index (BMI) of 31.0 to 31.9 in adult BASIC METABOLIC PANEL Routine 12/09/2024 12:45 PM EST Class 1 obesity due to excess calories without serious comorbidity with body mass index (BMI) of 31.0 to 31.9 in adult LIPID PANEL, STANDARD Routine 12/09/2024 12:45 PM EST Class 1 obesity due to excess calories without serious comorbidity with body mass index (BMI) of 31.0 to 31.9 in adult HEPATIC FUNCTION PANEL Routine 12/09/2024 12:45 PM EST Class 1 obesity due to excess calories without serious comorbidity with body mass index (BMI) of 31.0 to 31.9 in adult CHLAMYDIA/N. GONORRHOEAE RNA, TMA, UROGENITAL Routine 12/09/2024 12:45 PM EST Routine screening for STI (sexually transmitted infection) BACTERIAL VAGINOSIS PANEL Routine 12/09/2024 12:00 AM EST Screening mammogram for breast cancer HM PAP/HPV Routine 02/18/2021 from Last 3 Months or Most Recently Relevant to Health Maintenance Results * Syphilis Screen (12/09/2024 12:45 PM EST) Syphilis Screen Nonreactive Nonreactive [facility] Blood Venous blood specimen / Unknown 12/09/2024 12:45 PM EST 12/09/2024 4:03 PM EST us Rocío Nance MD LAB BLOOD ORDERABLES Final Result [facility] [address] [place] [phone] * Vitamin D, 25-Hydroxy, Total, Immunoassay (12/09/2024 12:45 PM EST) Vitamin D 25-OH Total 46.8 >30 ng/mL [facility] Comment:Health Based Referen ce Values*< 20 ng/mL Pzajvmfon45-40 ng/mL Insufficient> 30 ng/mL Sufficient*Kristian LYNN. N Engl J Med. 2007;357:266-280Care must be taken in interpreting Vitamin D results fromdifferent laboratories and methodologies. Published datademonstrated that results from patients undergoinghemodialysis may show a negative bias when tested withvarious automated 25-OH vitamin D assays when compared toLC-MS/MS.When testing samples from patients whose predominant form ofVitamin D is Vitamin D2, such as patients receiving VitaminD2 supplementation, results that are subtherapeutic shouldbe confirmed with another method such as LC-MS/MS. Blood 12/09/2024 12:4 5 PM EST 12/09/2024 4:03 PM EST Rocío Nance MD LAB BLOOD ORDERABLES Final Result Performing Organization Address [facility]/ZIP Co de Phone Number [facility] [address] [place] [phone] * TSH with Reflex to Free T4 (12/09/2024 12:45 PM EST) TSH reflex Free T4 2.04 0.32 - 4.0 uIU/mL [facility] Blood 12/09/2024 12:4 5 PM EST 12/09/2024 4:03 PM EST Rocío Nance MD LAB BLOOD ORDERABLES Final Result Performing Organization Address City/[facility]/ZIP Co de Phone Number [facility] [address] [place] [phone] * (ABNORMAL) CBC auto differential (12/09/2024 12:45 PM EST) White Blood Count 5.2 4.8 - 10.8 X10*3/uL [facility] Red Blood Count 4.81 4.20 - 5.50 X10*6/uL [facility] Hemoglobin 12.5 12.0 - 16.0 g/dl [facility] Hematocrit 38.9 37.0 - 47.0 % [facility] Mean Corpuscular Volume 80.9 80.0 - 98.0 fL [facility] Mean Corpuscular Hemoglobin 26.0(L) 27.0 - 33.0 pg [facility] Mean Corpuscular HGB Conc 32.1 31.0 - 35.0 g/dl [facility] Red Cell Distribution Width 15.0 11.0 - 16.0 % [facility] Platelet Count 289 160 - 400 X10*3/uL [facility] Mean Platelet Volume 10.0 9.4 - 12.3 fL [facility] Neutrophils Percent Auto 64.6 45 - 73 % [facility] Imm Gran Pct Auto 0.4 0.0 - 0.4 % [facility] Lymphocytes Percent Auto 25.3 20 - 40 % [facility] Monocytes Percent Auto 7.4 2 - 11 % [facility] Eosinophils Percent Auto 1.9 0 - 4 % [facility] Basophils Percent Auto 0.4 0 - 2 % [facility] NRBC Pct Auto 0.0 0.0 - 0.2 /100WBC [facility] Neutrophils Absolute Auto 3.3 2.0 - 8.3 x10*3/uL [facility] Imm Gran Abs Auto 0.02 0.00 - 0.03 X10*3/uL [facility] Lymphocytes Absolute Auto 1.3 1.2 - 4.9 X10*3/uL [facility] Monocytes Absolute Auto 0.4 0.1 - 1.2 X10*3/uL [facility] Eosinophils Absolute Auto 0.1 0.0 - 0.4 X10*3/uL [facility] Basophils Absolute Auto 0.0 0.0 - 0.2 X10*3/uL [facility] NRBC Abs Auto 0.000 0.0 - 0.012 X10*3/uL [facility] Blood Venous blood specimen / Unknown 12/09/2024 12:45 PM EST 12/09/2024 4:03 PM EST us Rocío Nance MD LAB BLOOD ORDERABLES Final Result Performing Organization Address [facility] Co de Phone Number [facility] [address] [place] [address] [phone] * Hepatitis C Antibody with Reflex to HCV, RNA, Quantitative, Real-Time PCR (12/09/2024 12:45 PM EST) Pathologist [facility] Hepatitis C Antibody Nonreactive Nonreactive [facility] Comment:Antibodies to HCV no t detected; does not exclude early acuteHCV infection. Blood Venous blood specimen / Unknown 12/09/2024 12:45 PM EST 12/09/2024 4:03 PM EST Rocío Nance MD LAB BLOOD ORDERABLES Final Result Performing Organization Address [facility] Co de Phone Number [facility] [address] [place] [phone] * Chlamydia/N. Gonorrhoeae RNA, TMA, Urine (12/09/2024 12:45 PM EST) [facility] CT PCR NOT DETECTED Not Detect. [facility] Comment:A not detected test result does not exclude the possibilityof infection because test results can be affected byimproper specimen collection, concurrent antibiotic therapy,or the number of organisms in the specimen which may bebelow the sensitivity of the test. As with many diagnostictests, results from the Xpert CT/NG assay should beinterpreted in conjunction with other laboratory andclinical data available to the clinician.Xpert CT/NG performance has not been evaluated in patientsless than 14 years of age. The assay should not be used forthe evaluationof suspected sexual abuse or for other medico-legalindications. Additional testing is recommended in anycircumstance when false positive or false negative resultscould lead to adverse medical, social or psychologicalconsequences. NG PCR NOT DETECTED Not Detect. [facility] Comment:A not detected test result does not exclude the possibilityof infection because test results can be affected byimproper specimen collection, concurrent antibiotic therapy,or the number of organisms in the specimen which may bebelow the sensitivity of the test. As with many diagnostictests, results from the Xpert CT/NG assay should beinterpreted in conjunction with other laboratory andclinical data available to the clinician.Xpert CT/NG performance has not been evaluated in patientsless than 14 years of age. The assay should not be used forthe evaluationof suspected sexual abuse or for other medico-legalindications. Additional testing is recommended in anycircumstance when false positive or false negative resultscould lead to adverse medical, social or psychologicalconsequences. Urine, Random 12/09/2024 12: 45 PM EST 12/09/2024 4:00 PM EST Narrative [facility] - 12/10/2024 3:55 AM EST Urine Rocío Nance MD LAB MICROBIOLOGY - GENERAL ORDERABLES Final Result [facility] [address] [place] [phone] * HIV-1/2 Antigen and Antibodies, Fourth Generation, with Reflexes (12/09/2024 12:45 PM EST) HIV AB/AG Nonreactive Nonreactive [facility] Comment:HIV-1 p24 Ag and/or HIV-1/HIV-2 Ab not detected.A test result that is nonreactive does not exclude thepossibility of exposure to or infection with HIV-1 and/orHIV-2. Nonreactive results in this assay for individualswith prior exposure to HIV-1 and/or HIV-2 may be due toantigen and antibody levels that are below the limit ofdetection of this assay.The [employer] HIV Ag/Ab Combo assay result andsupplemental assay results should be interpreted inconjunction with the patient's clinical presentation,history and other laboratory results. If the results areinconsistent with clinical evidence, additional testing issuggested to confirm the result. Blood Venous blood specimen / Unknown 12/09/2024 12:45 PM EST 12/09/2024 4:03 PM EST Rocío Nance MD LAB BLOOD ORDERABLES Final Result Performing Organization Address [facility] Co de Phone Number [facility] [address] [place] [phone] * (ABNORMAL) Hepatic Function Panel (12/09/2024 12:45 PM EST) Bilirubin, Total 0.3 0.0 - 1.0 mg/dL [facility] [facility] Bilirubin, Direct 0.1 0.0 - 0.5 mg/dL [facility] Aspartate Amino Transferase 27 5 - 31 U/L [facility] Alanine Aminotransferase 20 0 - 31 U/L [facility] Total Protein 8.1(H) 6.5 - 8.0 g/dL [facility] Albumin Level 4.7 3.5 - 5.0 g/dL [facility] Alkaline Phosphatase 52 39 - 117 U/L [facility] Blood Venous blood specimen / Unknown 12/09/2024 12:45 PM EST 12/09/2024 4:03 PM EST Rocío Nance MD LAB BLOOD ORDERABLES Final Result Performing Organization Address [facility] de Phone Number [facility] [address] [place] [phone] * (ABNORMAL) Lipid Panel, Standard (12/09/2024 12:45 PM EST) Triglycerides 95 <150 mg/dL [facility] Comment:Desirable Triglyceri de: less than 150 mg/dLBorderline High Triglyceride 150-199 mg/dLHigh Triglyceride: 200-499 mg/dLVery High Triglyceride: greater than or equal to 5OO mg/dL Cholesterol 180 <200 mg/dL [facility] Comment:Desirable Cholestero l: less than 200 mg/dLBorderline High Cholesterol: 200-239 mg/dLHigh Cholesterol: greater than 239 mg/dL LDL Cholesterol Calculated 106(H) <100 mg/dL [facility] Comment:Desirable LDL: less than 100 mg/dLNear Optimal/Above Optimal LDL: 110- 129 mg/dLBorderline High LDL: 130-159 mg/dLHigh LDL: 160-189 mg/dLVery High LDL: greater than or equal to 190 mg/dL HDL Cholesterol 55 >40 mg/dL [facility] Comment:Desirable HDL: great er than 40 mg/dL Note: This HDL assay may give artificially low results in patients with liver disease. Blood Venous blood specimen / Unknown 12/09/2024 12:45 PM EST 12/09/2024 4:03 PM EST Rocío Nance MD LAB BLOOD ORDERABLES Final Result [facility] [address] [place] [phone] * (ABNORMAL) Basic Metabolic Panel (12/09/2024 12:45 PM EST) Sodium 140 135 - 145 mmol/L [facility] Potassium 4.2 3.3 - 5.1 mmol/L [facility] Chloride 107 96 - 108 mmol/L [facility] Carbon Dioxide 28 22 - 29 mmol/L [facility] Anion Gap 9(L) 12 - 20 [facility] Urea Nitrogen (BUN) 8(L) 9 - 16 mg/dL [facility] Creatinine, Serum 0.79 0.5 - 1.4 mg/dL [facility] Estimated Glomerular Filt Rate >60 [facility] Comment:Chronic Kidney Disea se: Estimated GFR < 60 mL/min/1.92t4Vhixta Kidney Disease: Estimated GFR < 15 mL/min/1.73m2 Glucose 94 60 - 115 mg/dL [facility] Calcium 9.3 8.4 - 10.2 mg/dL [facility] Blood Venous blood specimen / Unknown 12/09/2024 12:45 PM EST 12/09/2024 4:03 PM EST Rocío Nance MD LAB BLOOD ORDERABLES Final Result [facility] [address] [place] [phone] * (ABNORMAL) Bacterial Vaginosis (12/09/2024 12:00 AM EST) TRICHOMONAS VAGINALIS DETECTION BY PCR NOT DETECTED Not Detect [facility] BACTERIAL VAGINOSIS DETECTION BY PCR POSITIVE(A) Negative [facility] Comment:The BV organism targ ets of the Xpert Xpress MVP test can becommensal in women; Xpert Xpress MVP positive results forbacterial vaginosis should be considered in conjunction withother clinical and patient information to determine thedisease status. Organisms that are not detected by the XpertXpress MVP test have also been reported to be associatedwith BV and aerobic vaginitis.The Xpert Xpress MVP test performance has not been evaluatedin patients under the age of 14. TIFFANY GROUP DETECTION BY PCR NOT DETECTED Not Detect [facility] Tiffany glab krusei PCR NOT DETECTED Not Detect [facility] 12/09/2024 12/09/2024 Rocío Nance MD LAB MICROBIOLOGY - GENERAL ORDERABLES Final Result [facility] [address] [place] [phone] * HM PAP/HPV (02/18/2021) Pap Smear 1. NILM 1. NILM Comment:With Yesenia Ramsay CNM Historical Provider HEALTH MAINTENANCE Final Result from Last 3 Months or Most Recently Relevant to Health Maintenance Insurance [employer] [facility] Advance Directives Documents on File Type Date Recorded Patient Medical Pathology Teacher Expl anation Advance Directives and Living Will 12/09/2024 Health Care Proxy 12/09/24 Care Teams City Mail Carrier Relationship Specialty Start Date End Date Gilmer, MD Rocío [address] [place] [phone] PCP - General Family Medicine 11/30/18 Luna Reina CNM Gynecology 12/09/24
--- OUTSIDE RECORDS SUMMARY | 2025-01-11 10:36 | XMS_ITS | Encounter Summary ---
Author Organization [facility] Address [address] [place] [address] [address] [place] [address] Care Team Providers Care Tempering Kiln Tender Name Role Phone Rocío Singh MD Primary Care Provider [phone] Reason for Referral * Imaging (Routine) - Closed Specialty Diagnoses / Procedures Referred By Contac t Referred To Contact Radiology Diagnoses Breast cancer screening by mammogram Procedures BI Mammogram Screening Tomosynthesis Bilateral Rocío Singh MD [address] [place] [phone] Phone: tel: fax: [address] Phone: tel: fax: Referral ID Status Reason Start Date Expiration Date Visits Re quested Visits Authorized [id number] Closed 12/09/2024 12/09/2025 1 1 Encounter Details Date Type Department Care Team (Late st Contact Info) Description 12/09/2024 11:15 AM EST Office Visit [facility] [address] [place] [address] Rocío Singh MD [address] [place] [address] Midline low back pain, unspecified chronicity, unspecified [...] Other specified health status; BV (bacterial vaginosis) Social History Tobacco Use Types Packs/Day Years [...] AM EDT documented as of this encounter Last Filed Vital Signs Vital Sign Reading [...] Mass Index 31.74 12/09/2024 11:11 AM EST documented in this encounter Progress Notes * Rocío Singh MD - 12/09/2024 11:15 AM EST Praful Murray is a 44 y.o. female with PMHx of depression and PTSD who presents to the office today here for chronic medical conditions and comprehensive annual evaluation. Last visit with me(PCP) was in 2022. Pt reports she had cosmetic surgeries as well as a tubal ligation. Mother with hx of diabetes and father with hx of diabetes and hypertension. She reports she was 11 years old when started tobacco, currently not smoking. Drinking was controlled and then had a set back, but has not been drinking the past 3 months except on new years. Pt reports she is not on any anti-depressants currently. Interested in seeing a therapist, but skeptical about starting back on medications. She notes she wants to have more cosmetic surgery, but will consider waiting after seeing a therapist. She reports she has been noticing some foul smell from her vagina and reports her pH is off. Agrees to Hep A and Pneumonia vaccines today. Social History Lives with her 6 children and some grandchildren and her partner. Feels safe at home. Tobacco: not currently smoking. Drugs: none Alcohol: Formerly Sexuality: Partner(s) current: 1, male. Has been together for 22 years. Had a slip up , but says she feels safe at this time. Suicide/Depression: The patient denies any present symptoms of depression or anxiety. Review of Systems Constitutional: Negative for fatigue, fever and unexpected weight change. Respiratory: Negative for cough. Cardiovascular: Negative for chest pain. Gastrointestinal: Negative for abdominal pain. Genitourinary: Negative for difficulty urinating. Musculoskeletal: Positive for back pain. Psychiatric/Behavioral: The patient is nervous/anxious. Current Outpatient Medications: cholecalciferol (Vitamin D-3) 25 MCG (1000 UT) tablet, Take 1 tablet (25 mcg) by mouth Once per day., Disp: 90 tablet, Rfl: 3 DULoxetine (Cymbalta) [address] capsule, Take 1 capsule (20 mg) by mouth Once per day., Disp: 90 capsule, Rfl: 2 hydrOXYzine pamoate (Vistaril) 25 MG capsule, Take 1 capsule (25 mg) by mouth if needed each day for itching (panic attack) for up to 20 days., Disp: 10 capsule, Rfl: 1 meloxicam (Mobic) 15 MG tablet, Take 1 tablet (15 mg) by mouth Once per day., Disp: 20 tablet, Rfl:1 Allergies Allergen Reactions Codeine Other reaction(s): rash Past Medical History: Diagnosis Date Hypothyroidism 12/30/2012 PTSD (post-traumatic stress disorder) 10/10/2023 -Her daughter was murdered (February 2017) and the patient developed PTSD and depression as well as analcohol dependency. Tobacco dependence syndrome 12/30/2012 Past Surgical History: Procedure Laterality Date COSMETIC SURGERY TUBAL LIGATION Family History Problem Relation Name Age of Onset Diabetes Mother Hypertension Father Diabetes Father Objective Visit Vitals BP 116/66 (BP Location: Left arm, Patient Position: Sitting, BP Cuff Size: Adult) Pulse 66 Temp 98 ??F (36.7 ??C) (Oral) Resp 20 Ht 5' 1 (1.549 m) Wt 168 lb (76.2 kg) SpO2 98% BMI 31.74 kg/m?? Smoking Status Former BSA 1.81 m?? Physical Exam Constitutional: Appearance: Normal appearance. HENT: Head: Normocephalic. Right Ear: Tympanic membrane normal. Left Ear: Tympanic membrane normal. Mouth/Throat: Pharynx: Oropharynx is clear. Eyes: Pupils: Pupils are equal, round, and reactive to light. Cardiovascular: Rate and Rhythm: Normal rate and regular rhythm. Heart sounds: Normal heart sounds. Pulmonary: Effort: Pulmonary effort is normal. Breath sounds: Normal breath sounds. Abdominal: General: Abdomen is flat. Palpations: There is no mass. Tenderness: There is no abdominal tenderness. Musculoskeletal: General: Normal range of motion. Cervical back: Normal range of motion and neck supple. Lymphadenopathy: Cervical: No cervical adenopathy. Skin: General: Skin is warm and dry. Neurological: General: No focal deficit present. Mental Status: She is alert. Psychiatric: Behavior: Behavior normal. 44 y.o. female annual evaluation. Problem List Items Addressed This Visit Backache - Primary - continue meloxicam (Mobic) 15 MG table, PRN for pain. Relevant Medications meloxicam (Mobic) 15 MG tablet Recurrent major depressive episodes, moderate (CMS/HCC) Currently not-controlled, not on any medication therapy. Interested in seeing a therapist. Denies suicidial or homacidial ideation. Discussed some medication options and pt agrees. -Start DULoxetine (Cymbalta) [address] capsule 12/09/24 -Start hydrOXYzine pamoate (Vistaril) 25 MG capsule 12/09/24 -referred to behavioral health 12/09/24 Relevant Medications DULoxetine (Cymbalta) [address] capsule Other Relevant Orders TSH with Reflex to Free T4 CBC auto differential Vitamin D, 25-Hydroxy, Total, Immunoassay Right knee pain - continue meloxicam (Mobic) 15 MG table, PRN for pain. Foul smelling vaginal discharge -ordered SureSwab?? Advanced Bacterial Vaginosis (BV), TMA 12/09/24 Anxiety Currently not-controlled, not on any medication therapy. Interested in seeing a therapist. Denies suicidial or homacidial ideation. Discussed some medication options and pt agrees. -Start DULoxetine (Cymbalta) [address] capsule 12/09/24 -Start hydrOXYzine pamoate (Vistaril) 25 MG capsule 12/09/24 -referred to behavioral health 12/09/24 Relevant Medications hydrOXYzine pamoate (Vistaril) 25 MG capsule PTSD (post-traumatic stress disorder) -Her daughter was murdered (February 2017) and the patient developed PTSD and depression as well as analcohol dependency. -has not been drinking regularly the past 3 months. -interested in therapy, referred to behavior health 12/09/24 Tobacco dependence syndrome Hx of tobacco dependence since 11 y.o. Currently quit smoking 12/09/24 Vitamin D deficiency Continue cholecalciferol (Vitamin D-3) 25 MCG (1000 UT) tablet Relevant Medications cholecalciferol (Vitamin D-3) 25 MCG (1000 UT) tablet Other Relevant Orders Vitamin D, 25-Hydroxy, Total, Immunoassay Breast cancer screening by mammogram Due for mammogram. -ordered mammogram 12/09/24 Relevant Orders BI Mammogram Screening Tomosynthesis Bilateral Class 1 obesity due to excess calories without serious comorbidity with body mass index (BMI) of 31.0 to 31.9 in adult -ordered routine labs 12/09/24 Relevant Orders Hepatic Function Panel Lipid Panel, Standard Basic Metabolic Panel TSH with Reflex to Free T4 CBC auto differential HIV-1/2 Antigen and Antibodies, Fourth Generation, with Reflexes Hepatitis C Antibody with Reflex to HCV, RNA, Quantitative, Real-Time PCR Syphilis Screen Other specified health status -next comprehensive annual evaluation due after 12/09/25 -eye care facilitated by [facility] -dental home is [facility]. -johnathan care proxy given and filed 12/09/24 Other Visit Diagnoses Routine screening for STI (sexually transmitted infection) Relevant Orders Chlamydia/N. Gonorrhoeae RNA, TMA, Urine SureSwab?? Advanced Bacterial Vaginosis (BV), TMA Dietary counseling Exercise counseling Encounter for immunization Relevant Orders PCV-20 VACCINE 6 wks + HEPATITIS A VACCINE ADULT 19 yrs + Annual Evaluation -Normal growth and development. -Anticipatory guidance discussed. -Preventative care / harm reduction discussed. Follow up in about 6 weeks (around 01/20/2025) for medication check. I, Rudolph Bedoya, am serving as a scribe to document services personally performed by Dr. Morales, based on the patient's response to questions by provider and providers statements to me. documented in this encounter Miscellaneous Notes * Assessment & Plan Note - Rudolph Bedoya - 12/09/2024 11:50 AM ESTAssociated Problem(s): Class 1 obesity due to excess calories without serious comorbidity with bodymass index (BMI) of 31.0 to 31.9 in adult -ordered routine labs 12/09/24 * Assessment & Plan Note - Rudolph Bedoya - 12/09/2024 11:49 AM ESTAssociated Problem(s): Right knee pain - continue meloxicam (Mobic) 15 MG table, PRN for pain. * Assessment & Plan Note - Rudolph Bedoya - 12/09/2024 11:49 AM ESTAssociated Problem(s): Foul smelling vaginal discharge -ordered SureSwab?? Advanced Bacterial Vaginosis (BV), TMA 12/09/24 * Assessment & Plan Note - Rudolph Bedoya - 12/09/2024 11:48 AM ESTAssociated Problem(s): Anxiety Currently not-controlled, not on any medication therapy. Interested in seeing a therapist. Denies suicidial or homacidial ideation. Discussed some medication options and pt agrees. -Start DULoxetine (Cymbalta) [address] capsule 12/09/24 -Start hydrOXYzine pamoate (Vistaril) 25 MG capsule 12/09/24 -referred to behavioral health 12/09/24 * Assessment & Plan Note - Rudolph Bedoya - 12/09/2024 11:48 AM ESTAssociated Problem(s): Recurrent major depressive episodes, moderate (CMS/HCC) Currently not-controlled, not on any medication therapy. Interested in seeing a therapist. Denies suicidial or homacidial ideation. Discussed some medication options and pt agrees. -Start DULoxetine (Cymbalta) [address] capsule 12/09/24 -Start hydrOXYzine pamoate (Vistaril) 25 MG capsule 12/09/24 -referred to behavioral health 12/09/24 * Assessment & Plan Note - Rudolph Bedoya - 12/09/2024 11:43 AM ESTAssociated Problem(s): Backache - continue meloxicam (Mobic) 15 MG table, PRN for pain. * Assessment & Plan Note - Rudolph Bedoya - 12/09/2024 11:41 AM ESTAssociated Problem(s): PTSD (post-traumatic stress disorder) -Her daughter was murdered (February 2017) and the patient developed PTSD and depression as well as analcohol dependency. -has not been drinking regularly the past 3 months. -interested in therapy, referred to behavior health 12/09/24 * Assessment & Plan Note - Rudolph Bedoya - 12/09/2024 11:38 AM ESTAssociated Problem(s): Breast cancer screening by mammogram Due for mammogram. -ordered mammogram 12/09/24 * Assessment & Plan Note - Rudolph Bedoya - 12/09/2024 11:34 AM ESTAssociated Problem(s): Vitamin D deficiency Continue cholecalciferol (Vitamin D-3) 25 MCG (1000 UT) tablet * Assessment & Plan Note - Rudolph Bedoya - 12/09/2024 11:33 AM ESTAssociated Problem(s): Other specified health status -next comprehensive annual evaluation due after 12/09/25 -eye care facilitated by [facility] -dental home is [facility]. -johnathan care proxy given and filed 12/09/24 * Assessment & Plan Note - Rudolph Bedoya - 12/09/2024 11:33 AM ESTAssociated Problem(s): Tobacco dependence syndrome Hx of tobacco dependence since 11 y.o. Currently quit smoking 12/09/24 * Addendum Note - Rocío Singh MD - 12/09/2024 11:15 AM ESTAddended by: ROCÍO SINGH on: 12/12/2024 11:25 AM Modules accepted: Orders documented in this encounter Plan of Treatment Scheduled Orders Name Type Priority Associated Diagnoses Orde r Schedule BI Mammogram Screening Tomosynthesis Bilateral Imaging Routine Breast cancer screening by mammogram Expected: 12/09/2024, Expires: 02/06/2026 SureSwab?? Advanced Bacterial Vaginosis (BV), TMA Lab Routine Routine screening for STI (sexually transmitted infection) Expected: 12/09/2024 (Approximate), Expires: 12/09/2025 documented as of this encounter Procedures Procedure Name Priority Date/Time Associated Diagnosis Comments SYPHILIS SCREEN Routine 12/09/2024 12:45 PM EST Class 1 obesity due to excess calories without serious comorbidity with body mass index (BMI) of 31.0 to 31.9 in adult VITAMIN D,25-OH,TOTAL,IA Routine 12/09/2024 12:45 PM EST Recurrent major depressive episodes, moderate (CMS/HCC) Vitamin D deficiency TSH W/REFLEX TO FT4 Routine 12/09/2024 1 2:45 PM EST Recurrent major depressive episodes, moderate (CMS/HCC) Class 1 obesity due to excess calories without serious comorbidity with body mass index (BMI) of 31.0 to 31.9 in adult CBC WITH AUTO DIFFERENTIAL Routine 12/09/2024 12:45 [...] Routine screening for STI (sexually transmitted infection) HIV 1/2 ANTIGEN/ANTIBODY, FOURTH GENERATION W/RFL Routine [...] (BMI) of 31.0 to 31.9 in adult documented in this encounter Results * Syphilis Screen (12/09/2024 12:45 PM EST) Syphilis Screen Nonreactive Nonreactive [facility] Blood Venous blood specimen / Unknown 12/09/2024 12:45 PM EST 12/09/2024 4:03 PM EST us Rocío Singh MD LAB BLOOD ORDERABLES Final Result [facility] [address] [place] [phone] * Hepatitis C Antibody with Reflex to HCV, RNA, Quantitative, Real-Time PCR (12/09/2024 12:45 PM EST) Hepatitis C Antibody Nonreactive Nonreactive [facility] Comment:Antibodies to HCV no t detected; does not exclude early acuteHCV infection. Blood Venous blood specimen / Unknown 12/09/2024 12:45 PM EST 12/09/2024 4:03 PM EST Rocío Singh MD LAB BLOOD ORDERABLES Final Result Performing Organization Address [facility]/ZIP Co de Phone Number [facility] [address] [place] [phone] * HIV-1/2 Antigen and Antibodies, Fourth Generation, with Reflexes (12/09/2024 12:45 PM EST) HIV AB/AG Nonreactive Nonreactive [facility] Comment:HIV-1 p24 Ag and/or HIV-1/HIV-2 Ab not detected.A test result that is nonreactive does not exclude thepossibility of exposure to or infection with HIV-1 and/orHIV-2. Nonreactive results in this assay for individualswith prior exposure to HIV-1 and/or HIV-2 may be due toantigen and antibody levels that are below the limit ofdetection of this assay.[employer] HIV Ag/Ab Combo assay result andsupplemental assay results should be interpreted inconjunction with the patient's clinical presentation,history and other laboratory results. If the results areinconsistent with clinical evidence, additional testing issuggested to confirm the result. Blood Venous blood specimen / Unknown 12/09/2024 12:45 PM EST 12/09/2024 4:03 PM EST Rocío Singh MD LAB BLOOD ORDERABLES Final Result Performing Organization Address [facility]/ZIP Co de Phone Number [facility] [address] [place] [phone] * Vitamin D, 25-Hydroxy, Total, Immunoassay (12/09/2024 12:45 PM EST) Vitamin D 25-OH Total 46.8 >30 ng/mL [facility] Comment:Health Based Referen ce Values*< 20 ng/mL Yknomijst29-36 ng/mL Insufficient> 30 ng/mL Sufficient*Kristian LYNN. N [...] PM EST 12/09/2024 4:03 PM EST Rocío Singh MD LAB BLOOD ORDERABLES Final Result [facility] [address] [place] [phone] * (ABNORMAL) CBC auto differential (12/09/2024 12:45 PM EST) Pathologist [facility] White Blood Count 5.2 4.8 - 10.8 X10*3/uL [facility] Red Blood Count 4.81 4.20 - 5.50 X10*6/uL [facility] Hemoglobin 12.5 12.0 - 16.0 g/dl [facility] Hematocrit 38.9 37.0 - 47.0 % [facility] Mean Corpuscular Volume 80.9 80.0 - 98.0 fL [facility] Mean Corpuscular Hemoglobin 26.0(L) 27.0 - 33.0 pg [facility] Mean Corpuscular HGB Conc 32.1 31.0 - 35.0 g/dl [facility] Red Cell Distribution Width 15.0 11.0 - 16.0 % [facility] Platelet Count 289 160 - 400 X10*3/uL [facility] Mean Platelet Volume 10.0 9.4 - 12.3 fL [facility] Neutrophils Percent Auto 64.6 45 - 73 % [facility] Imm Gran Pct Auto 0.4 0.0 - 0.4 % [facility] Lymphocytes Percent Auto 25.3 20 - 40 % [facility] Monocytes Percent Auto 7.4 2 - 11 % [facility] Eosinophils Percent Auto 1.9 0 - 4 % [facility] Basophils Percent Auto 0.4 0 - 2 % [facility] NRBC Pct Auto 0.0 0.0 - 0.2 /100WBC [facility] Neutrophils Absolute Auto 3.3 2.0 - 8.3 x10*3/uL [facility] Imm Gran Abs Auto 0.02 0.00 - 0.03 X10*3/uL [facility] Lymphocytes Absolute Auto 1.3 1.2 - 4.9 X10*3/uL [facility] Monocytes Absolute Auto 0.4 0.1 - 1.2 X10*3/uL [facility] Eosinophils Absolute Auto 0.1 0.0 - 0.4 X10*3/uL [facility] Basophils Absolute Auto 0.0 0.0 - 0.2 X10*3/uL [facility] NRBC Abs Auto 0.000 0.0 - 0.012 X10*3/uL [facility] Blood Venous blood specimen / Unknown 12/09/2024 12:45 PM EST 12/09/2024 4:03 PM EST us Rocío Singh MD LAB BLOOD ORDERABLES Final Result [facility] [address] [place] [phone] * TSH with Reflex to Free T4 (12/09/2024 12:45 PM EST) TSH reflex Free T4 2.04 0.32 - 4.0 uIU/mL [facility] Blood 12/09/2024 12:4 5 PM EST 12/09/2024 4:03 PM EST Rocío Singh MD LAB BLOOD ORDERABLES Final Result Performing Organization Address City/[facility]/ZIP Co de Phone Number [facility] [address] [place] [phone] * (ABNORMAL) Basic Metabolic Panel (12/09/2024 12:45 PM EST) Sodium 140 135 - 145 mmol/L [facility] Potassium 4.2 3.3 - 5.1 mmol/L [facility] Chloride 107 96 - 108 mmol/L [facility] Carbon Dioxide 28 22 - 29 mmol/L [facility] Anion Gap 9(L) 12 - 20 [facility] Urea Nitrogen (BUN) 8(L) 9 - 16 mg/dL [facility] Creatinine, Serum 0.79 0.5 - 1.4 mg/dL [facility] Estimated Glomerular Filt Rate >60 [facility] Comment:Chronic Kidney Disea se: Estimated GFR < 60 mL/min/1.15k2Voqxse Kidney Disease: Estimated GFR < 15 mL/min/1.73m2 Glucose 94 60 - 115 mg/dL [facility] Calcium 9.3 8.4 - 10.2 mg/dL [facility] Blood Venous blood specimen / Unknown 12/09/2024 12:45 PM EST 12/09/2024 4:03 PM EST Rocío Singh MD LAB BLOOD ORDERABLES Final Result Performing Organization Address City/[facility]/ZIP Co de Phone Number [facility] [address] [place] [phone] * (ABNORMAL) Lipid Panel, Standard (12/09/2024 12:45 PM EST) Triglycerides 95 <150 mg/dL [facility] Comment:Desirable Triglyceri de: less than 150 mg/dLBorderline High Triglyceride 150-199 mg/dLHigh Triglyceride: 200-499 mg/dLVery High Triglyceride: greater than or equal to 5OO mg/dL Cholesterol 180 <200 mg/dL [facility] Comment:Desirable Cholestero l: less than 200 mg/dLBorderline High Cholesterol: 200-239 mg/dLHigh Cholesterol: greater than 239 mg/dL LDL Cholesterol Calculated 106(H) <100 mg/dL [facility] Comment:Desirable LDL: less than 100 mg/dLNear Optimal/Above Optimal LDL: 110- 129 mg/dLBorderline High LDL: 130-159 mg/dLHigh LDL: 160-189 mg/dLVery High LDL: greater than or equal to 190 mg/dL HDL Cholesterol 55 >40 mg/dL [facility] Comment:Desirable HDL: great er than 40 mg/dL Note: This HDL assay may give artificially low results in patients with liver disease. Blood Venous blood specimen / Unknown 12/09/2024 12:45 PM EST 12/09/2024 4:03 PM EST us Rocío Singh MD LAB BLOOD ORDERABLES Final Result [facility] [address] [place] [phone] * (ABNORMAL) Hepatic Function Panel (12/09/2024 12:45 PM EST) Bilirubin, Total 0.3 0.0 - 1.0 mg/dL [facility] Bilirubin, Direct 0.1 0.0 - 0.5 mg/dL [facility] Aspartate Amino Transferase 27 5 - 31 U/L [facility] Alanine Aminotransferase 20 0 - 31 U/L [facility] Total Protein 8.1(H) 6.5 - 8.0 g/dL [facility] Albumin Level 4.7 3.5 - 5.0 g/dL [facility] Alkaline Phosphatase 52 39 - 117 U/L [facility] Blood Venous blood specimen / Unknown 12/09/2024 12:45 PM EST 12/09/2024 4:03 PM EST us Rocío Singh MD LAB BLOOD ORDERABLES Final Result [facility] [address] [place] [phone] * Chlamydia/N. Gonorrhoeae RNA, TMA, Urine (12/09/2024 12:45 PM EST) CT PCR NOT DETECTED Not Detect. [facility] Comment:A not detected test result does [...] psychologicalconsequences. NG PCR NOT DETECTED Not Detect. [facility] Comment:A not detected test result does [...] PM EST 12/09/2024 4:00 PM EST Narrative [facility] - 12/10/2024 3:55 AM EST Urine Rocío Singh MD LAB MICROBIOLOGY - GENERAL ORDERABLES Final Result [facility] [address] [place] [phone] documented in this encounter Visit Diagnoses Diagnosis Midline low back pain, unspecified chronicity, unspecified whether sciatica present- Primary Recurrent major depressive episodes, moderate (CMS/HCC) Major depressive disorder, recurrent episode, moderate Chronic pain of right knee Foul smelling vaginal discharge Anxiety Anxiety state, unspecified PTSD (post-traumatic stress disorder) Posttraumatic stress disorder Tobacco dependence syndrome Tobacco use disorder Vitamin D deficiency Breast cancer screening by mammogram Routine screening for STI (sexually transmitted infection) Screening examination for venereal disease Class 1 obesity due to excess calories without serious comorbidity with body mass index (BMI) of 31.0 to 31.9 in adult Dietary counseling Dietary surveillance and counseling Exercise counseling Encounter for immunization Other specified health status BV (bacterial vaginosis) Unspecified vaginitis and vulvovaginitis documented in this encounter Additional Health Concerns Assessment Noted Time PHQ-9 Depression Total Score: 21 025 12:01 PM EST documented as of this encounter Care Teams Tempering Kiln Tender Relationship Specialty Start Date End Date Rocío Singh MD [address] [place] [phone] PCP - General Family Medicine 11/30/18 Luna Reina CNM Gynecology 12/09/24 documented as of this encounter
--- OUTSIDE RECORDS SUMMARY | 2025-01-11 10:36 | XMS_ITS | Encounter Summary ---
Author Organization [employer] Address [address] [facility] 7[address] [place] [address] Care Team Providers Care Crushing Foreman Name Role Phone Rocío Nance MD Primary Care Provider +1- [phone] Reason for Visit * Reason Onset Date Comments Lab Orders 01/11/2025 Encounter Details Date Type Department Care Team ([facility] st Contact Info) Description 01/11/2025 Telephone [facility] [address] [place], [place] [phone] Renee Geronimo RN [address] [place], [place] [phone] Lab Orders Social History Tobacco Use Types Packs/Day Years [...] encounter Miscellaneous Notes * Telephone Encounter - Renee Geronimo RN - 01/11/2025 8:45 AM EST Pt requesting TB testing for work. Tspot ordered. documented in this encounter Plan of Treatment Scheduled Orders Name Type Priority Associated Diagnoses Orde r Schedule T-SPOT??.TB Lab Routine Screening for tuberculosis Expected: 01/11/2025 (Approximate), Expires: 01/11/2026 documented as of this encounter Visit Diagnoses Diagnosis Screening for tuberculosis Screening examination for pulmonary tuberculosis documented in this encounter Additional Health Concerns Assessment Noted Time PHQ-9 Depression Total Score: 21 025 12:01 PM EST documented as of this encounter Care Teams Crushing Foreman Relationship Specialty Start Date End Date Rocío Nance MD [address] [place] [id number] PCP - General Family Medicine 11/30/18 Luna Reina CNM Gynecology 12/09/24 documented as of this encounter
--- OUTSIDE RECORDS SUMMARY | 2025-01-11 10:36 | XMS_ITS | Encounter Summary ---
Author Organization [employer] Address [address] [facility] 7[address] [place] [address] Care Team Providers Care Greens Laborer Name Role Phone Rocío Nance MD Primary Care Provider +1- [phone] Reason for Visit * Reason Onset Date Comments chartprep 01/09/2025 Encounter Details Date Type Department Care Team (Late st Contact Info) Description 01/09/2025 Telephone [facility]INE [address] [place], [place] [phone] Tanja Vazquez MA chartprep Social History Tobacco Use Types Packs/Day Years [...] enough money to get more: Never True 01/ 08/2025 Transportation Answer Date Recorded In the [...] encounter Miscellaneous Notes * Telephone Encounter - Tanja Vazquez MA - 01/09/2025 4:03 PM EST Chart Prep Labs: done Images: done Vaccines due: Tdap Referrals: none Screenings: mammogram Overdue care gaps: update documented in this encounter Plan of Treatment Not on file documented as of this encounter Visit Diagnoses Not on filedocumented in this encounter Additional Health Concerns Assessment Noted Time PHQ-9 Depression Total Score: 21 025 12:01 PM EST documented as of this encounter Care Teams Greens Laborer Relationship Specialty Start Date End Date Rocío Nance MD [address] [place] [id number] PCP - General Family Medicine 11/30/18 Luna Reina CNM Gynecology 12/09/24 documented as of this encounter
--- OUTSIDE RECORDS SUMMARY | 2025-01-11 10:36 | XMS_ITS | Encounter Summary ---
Author Organization [employer] Address [address] [facility] [address] [place] [address] Care Team Providers Care Button Maker And Installer Name Role Phone Rocío Nance MD Primary Care Provider +1- [phone] Reason for Visit * Reason Onset Date Comments Results 12/12/2024 Encounter Details Date Type Department Care Team ([facility] st Contact Info) Description 12/12/2024 Telephone [facility] MEDICINE [address] [place], [place] [phone] Eveline El RN Results Social History Tobacco Use Types Packs/Day Years [...] encounter Miscellaneous Notes * Telephone Encounter - Eveline El RN - 12/12/2024 11:41 AM EST TC placed to pt to inform and advise of PCP's result message below regarding BV. Pt educated on proper hygiene and sexual practices during treatment. Pt also informed about the medication prescribed and how to safely use it. Pt to f/u with the office if symptoms persist after finishing the medication. ----- Message from Rocío Nance MD sent at 12/12/2024 11:26 AM EST ----- Bacterial vaginosis noted. Please call and let Charissa know. If she/he/they is/are having any vaginal discharge, odor or irritation, this is why. I will send in a vaginal treatment to use gel in vagina nightly for 1 weeks. This is not sexually transmitted so her/his/their partner doesn't need treatment. Charissa should avoid douching, as well as scented bath or body products. Wash vulva with water only. Complete medication as prescribed and schedule follow-up if symptoms persist/recur. Abstain from sex during treatment. Thanks! documented in this encounter Plan of Treatment Not on file documented as of this encounter Visit Diagnoses Not on filedocumented in this encounter Additional Health Concerns Assessment Noted Time PHQ-9 Depression Total Score: 21 025 12:01 PM EST documented as of this encounter Care Teams Button Maker And Installer Relationship Specialty Start Date End Date Rocío Nance MD [address] [place] [address] PCP - General Family Medicine 11/30/18 Luna Reina CNM Gynecology 12/09/24 documented as of this encounter
--- OUTSIDE RECORDS SUMMARY | 2025-01-11 10:36 | XMS_ITS | Encounter Summary ---
Author Organization [employer] Address [address] [facility] 7[address] [place] [address] Care Team Providers Care Head Of English Name Role Phone Rocío Nance MD Primary Care Provider +1- [phone] Encounter Details Date Type Department Care Team ([facility] st Contact Info) Description 01/11/2025 9:00 AM EST Immunization [facility] [address] [place] [address] Batsheva Sneed LPN Encounter for immunization (Primary Dx) Social History Tobacco Use Types Packs/Day Years [...] AM EDT documented as of this encounter Progress Notes * Batsheva Sneed LPN - 01/11/2025 9:00 AM EST Subjective Patient ID: Charissa Wilkes is a 44 y.o. female who presents Pt here for [id number] [employer], [employer], 12 yr+, vaccine. Pt questionnaire indicates that pt is eligible to receive vaccine. Pt denies allergies to vaccine components. Pt educated as to signs/symptoms of Covid infection and potential side effects of vaccination including low grade fevers, intermittent chills, fatigue, body aches and swelling/redness/pain at injection site. Pt informed of benefits of adequate hydration postvaccinations. Pt tolerated injection well and monitored for 15 minutes documented in this encounter Plan of Treatment Not on file documented as of this encounter Visit Diagnoses Diagnosis Encounter for immunization- Primary documented in this encounter Additional Health Concerns Assessment Noted Time PHQ-9 Depression Total Score: 21 025 12:01 PM EST documented as of this encounter Care Teams Head Of English Relationship Specialty Start Date End Date Rocío Nance MD [address] [place] [id number] PCP - General Family Medicine 11/30/18 Luna Reina CNM Gynecology 12/09/24 documented as of this encounter
[2025-01-14 13:18] LABS: TS Negative Control Passed; TS Panel A 0; TS Panel B 0; TS Positive Control Passed; TSpotTB Negative (Negative)
== END 2025-01-11 09:24 | disposition home or self-care (01) ==
LOC: HO.HHCL 09:23
PROVIDERS: Visit Provider Family Medicine
DX: Z11.1 Encounter for screening for respiratory tuberculosis (principal)
CPT/HCPCS: 36415; 86481